=== PATIENT | female | born 1990 | race Caucasian/White ===

== ENCOUNTER → 2018-09-06 08:21 | Outpatient (CLI) | payer OTHER, SELFPAY ==
--- NOTE | 2018-09-06 08:23 | DI.RAD.S_ITS ---
PROCEDURE: XR PELVIS 1-2V INDICATIONS: pelvic pain TECHNIQUE: Single view(s) of the pelvis acquired. COMPARISON: None. FINDINGS: Bones: No fractures or dislocations. No suspicious bony lesions. Joint spaces appear grossly preserved. Sacroiliac joints unremarkable. Soft tissues: Visualized bowel gas pattern is normal. No suspicious soft tissue calcifications. IMPRESSION: Negative exam. Dictated by: Bashir Kirkland M.D. on 09/06/2018 at 11:36 Approved by: Bashir Kirkland M.D. on 09/06/2018 at 11:41
--- NOTE | 2018-09-06 08:23 | DI.RAD.S_ITS ---
PROCEDURE: XR LUMBAR SPINE MIN 4V INDICATIONS: pelvic pain TECHNIQUE: 5 views of the lumbar spine were acquired. COMPARISON: None. FINDINGS: Bones: No fracture or focal osseous destruction seen. There is mild diffuse lumbar facet arthropathy. No definite lumbar disc space narrowing seen. Sacroiliac joints appear unremarkable Soft tissues: Overlying bowel gas pattern is normal. No suspicious soft tissue calcifications. Oblique images: No pars defects. IMPRESSION: Mild diffuse lumbar facet arthropathy, otherwise unremarkable examination as above. Dictated by: Bashir Kirkland M.D. on 09/06/2018 at 10:10 Approved by: Bashir Kirkland M.D. on 09/06/2018 at 10:13
[2018-09-06 09:15] LABS: Hematocrit 40.4 % (36-46); Hemoglobin 13.7 g/dL (12.0-16.0); Mean Corpuscular HGB Conc 33.8 % (30-36); Mean Corpuscular Hemoglobin 31.1 PG (26-34); Mean Corpuscular Volume 91.8 fL (80-100); Platelet Count 266 X10^3/uL (150-400); Red Cell Distribution Width 12.5 % (11.6-14.8); White Blood Cell Count 5.2 X10^3/uL (4.5-11.0)
[2018-09-06 09:39] LABS: Neutrophils Absolute Manual 2652 /uL (3000-5900); RBC Morphology Normal Morphology; Total Cells Counted 100
[2018-09-06 09:55] LABS: Alanine Aminotransferase 21 IU/L (9-52); Albumin 4.4 g/dL (3.5-5.0); Albumin Globulin Ratio 1.8 (1.0-2.8); Alkaline Phosphatase 37 U/L (38-126); Aspartate Aminotransferase 19 IU/L (14-36); BUN Creatinine Ratio 14.3 (6-22); Bilirubin Total 0.6 mg/dL (0.2-1.3); Blood Urea Nitrogen 10 mg/dL (7-17); Calcium 9.1 mg/dL (8.4-10.2); Carbon Dioxide 25 mmol/L (22-32); Chloride 104 mmol/L (98-107); Estimated Glomerular Filt Rate > 60.0 mL/min (>60); Globulin 2.5 g/dL (1.7-4.1); Glucose 81 mg/dL (70-100); HEMOLYSIS < 15 (0-50); Potassium 3.8 mmol/L (3.4-5.1); Sodium 143 mmol/L (137-145); Total Protein 6.9 g/dL (6.3-8.2)
[2018-09-06 10:03] LABS: Vitamin D 25 Hydroxy (D3) 29.9 ng/mL (30.0-100.0)
[2018-09-06 10:06] LABS: C-Reactive Protein Quant < 0.5 mg/dL (<1.0)
[2018-09-06 10:18] LABS: Thyroid Stimulating Hormone 0.87 uIU/mL (0.47-4.68)
[2018-09-06 10:34] LABS: Vitamin B12 244 pg/mL (239-931)
== END ==
PROVIDERS: Family Provider Obstetrics & Gynecology; PCP Obstetrics & Gynecology; Visit Provider Family Medicine
DX: R10.2 Pelvic and perineal pain (principal); M47.816 Spondylosis without myelopathy or radiculopathy, lumbar region; R53.82 Chronic fatigue, unspecified
CPT/HCPCS: 36415; 72110; 72170; 80053; 82306; 82607; 84443; 85025; 86140

== ENCOUNTER 2018-11-06 09:33 | Emergency (ER) | payer OTHER, SELFPAY ==
[2018-11-06 09:40] VITALS: BP 119/79; PULSE 96; RESP 20; TEMP 37.1; O2SAT 98; BMI 22.3
--- NOTE | 2018-11-06 09:46 | DI.RAD.S_ITS ---
PROCEDURE: XR CHEST 2V INDICATIONS: cough, chest congestion TECHNIQUE: 2 views of the chest were acquired. COMPARISON: Located Within [facility], , CHEST 1 VIEW, 04/16/2016, 22:16. FINDINGS: Surgical changes and devices: None. Lungs and pleura: No pleural effusions or pneumothorax. Lungs are clear. Mediastinum: Mediastinal contours are normal. Heart size is normal. Bones and chest wall: No suspicious bony abnormalities. Soft tissues appear unremarkable. IMPRESSION: 1. No acute cardiopulmonary disease. Dictated by: Anderson Egan M.D. on 11/06/2018 at 10:19 Approved by: Anderson Egan M.D. on 11/06/2018 at 10:19
[2018-11-06 10:51] VITALS: BP 122/74; PULSE 77; RESP 18; O2SAT 99
--- NOTE | 2018-11-07 14:17 | ED_ITS ---
HPI - URI/Sore Throat General Chief Complaint: Upper Respiratory Symptoms Stated Complaint: states possible pink eye and chest congestion Time Seen by Provider: 11/06/18 10:21 Source: patient Mode of arrival: ambulatory Limitations: no limitations History of Present Illness HPI Narrative: Patient presents the emergency department with chief complaint of eye redness and irritation times 24 hr. Patient states that she has recently had an upper respiratory infection, as has her small child, but that seems to be getting better. She states that mainly, she is concerned because her eyes, especially her right eye, have become increasingly red and itchy and now she is having mucousy discharge out of both of them. She states her eyes are starting to burn and hurt. She does not wear contacts or other corrective lenses. She has had no foreign bodies in her eye. She is otherwise feeling okay, though she still has somewhat of a cough and has a tight feeling in her chest. No other complaints at this time. No chest pain. No fever. No nausea, vomiting, diarrhea, or abdominal pain. Related Data Previous Rx's Medication Instructions Recorded norethindrone acetate 1 mg-ethinyl 1 tab PO DAILY #63 tab 10/13/18 estradiol 20 mcg tablet gentamicin 2 drop EYE-BOTH TID #5 ml 11/06/18 Allergies Allergy/AdvReac Type Severity Reaction Status Date / Time No Known Drug Allergies Allergy Verified 09/23/18 13:51 Review of Systems Review of Systems All systems reviewed & are unremarkable except as noted in HPI and below Constitutional Denies chills, Denies fever(s), Denies lethargy and Denies weakness Eyes Denies change in vision, Reports eye discharge, Reports irritation, Denies loss of vision and Reports eye pain ENT Ears, Nose, Mouth, and Throat: Denies change in voice, Denies neck pain and Denies sore throat Cardiovascular Denies chest pain, Denies irregular heart rhythm, Denies lightheadedness, Denies palpitations, Denies dyspnea, Denies dyspnea on exertion and Denies orthopnea Respiratory Reports cough, Denies dyspnea, Denies dyspnea on exertion and Denies wheezing Gastrointestinal Gastrointestinal: Denies abdominal pain, Denies change in bowel habits, Denies diarrhea, Denies nausea and Denies vomiting Genitourinary Denies hematuria, Denies flank pain, Denies urinary incontinence and Denies urinary urgency Musculoskeletal Denies neck pain Integumentary/Breasts Denies pruritus, Denies erythema, Denies rash and Denies wounds Neurologic Denies confusion, Denies loss of vision and Denies weakness Psychiatric Denies anxiety, Denies confusion, Denies depression, Denies homicidal ideation and Denies suicidal ideation Endocrine Denies palpitations Hematologic/Lymphatic Denies easy bruising Allergic/Immunologic Denies wheezing [facility] Medical History HPV (human papilloma virus) infection (Chronic) Abnormal Pap smear of cervix (Resolved) Surgical History Anesthesia (Resolved) History of tonsillectomy (Resolved 05/2005) Status post loop electrosurgical excision procedure (LEEP) of cervix (Resolved 08/2014) Family History Grandfather Cancer Pancreatic cancer Grandfather Age: 86 Pacemaker Brother No problems noted. Father No problems noted. Grandmother No problems noted. Mother No problems noted. Grandmother No problems noted. Sister No problems noted. Social History marital status: Smoking Status: Never smoker alcohol intake: current (ON OCCASION ) substance use type: does not use Exam Initial Vital Signs Initial Vital Signs: Vital Signs Temperature 98.7 F 11/06/18 09:40 Pulse Rate 96 H 11/06/18 09:40 Respiratory Rate 20 11/06/18 09:40 Blood Pressure 119/79 11/06/18 09:40 Pulse Oximetry 98 11/06/18 09:40 Const General: cooperative and well developed Nutritional Appearance: well nourished Orientation: alert, awake, oriented x3 and not confused [facility] Head: normocephalic and atraumatic Ears: external ears normal Nose: external nose normal and No nasal discharge Face and sinus: face symmetric and No dry mucous membranes Mouth: oral mucosae normal and moist mucous membranes Teeth and gingiva: dentition normal Eyes General: appearance normal, both eyes and all related structures Eyelids: eyelids normal Conjunctivae: conjunctival abnormality (Injection bilaterally, right greater than left.) Sclera: sclerae normal Pupils: PERRL EOM: EOM intact bilaterally Neck Neck: normal visual inspection, trachea midline, No lymphadenopathy, No midline deformity and No JVD Lymphatic: No lymphedema Chest Chest: normal inspection of the chest Resp Effort & Inspection: normal respiratory effort, able to speak in complete sentences, no respiratory distress and no use of accessory muscles Auscultation: clear to auscultation bilaterally, no rales, no rhonchi and no wheezes Cardio Rate: regular rate Rhythm: regular rhythm Heart Sounds: no click, no gallops, no murmurs and no rubs Pulses: normal peripheral pulses GI Inspection: non-distended Palpation: soft, no hepatosplenomegaly, No guarding, No pulsatile mass and No tender Back/Spine/Pelvis Back: No CVA tenderness Cervical Spine: cervical ROM normal and No pain with cervical ROM Thoracic/Lumbar Spine: thoracic and lumbar spine normal to inspection Skin General: no rashes or lesions noted, No jaundice and No petechiae Neuro General: alert, oriented x3, gait normal and no focal motor deficits Speech: speech normal Extrem General: full ROM, no clubbing, cyanosis or edema, no pedal edema and no calf tenderness Psych Appearance: well kempt Mental Status: mental status grossly normal Attitude: cooperative Thought Content: normal and suicidality Judgment: judgment good Course Course Narrative: I discussed with the patient that she most likely has a viral conjunctivitis, but we would treat her with antibiotic drops as a precaution. Due to large volume in the emergency department, nursing staff did follow protocol and order a chest x-ray on the patient, due to her complaint of cough and chest heaviness. This is found to be negative. I did feel this patient was stable for discharge home. She was given a prescription for eyedrops, and I did answer her questions about how to apply the drops. Patient is deemed stable for discharge home. We have discussed the usual indications for return. Orders Ordered: ED Orders 11/06/18 09:46 CXR [XR chest 2V] Stat Vital Signs - 8 hr 11/06/18 09:40 Temperature 98.7 F Pulse Rate 96 H Respiratory Rate 20 Blood Pressure 119/79 Pulse Oximetry 98 MDM - URI/Sore Throat Medical Records Attestation: I reviewed the patient's medical records. Discharge Plan Departure Patient Disposition: Home Clinical Impression: Conjunctivitis, Upper respiratory infection Discharge Date/Time: 11/06/18 10:52 Interventions: ED Discharge Assessment Last Done: 11/06/18 10:52 Instructions: DI for Conjunctivitis Prescriptions: New gentamicin 0.3 % drops 2 drop EYE-BOTH TID Qty: 5 RF: 0 No Action norethindrone ac-eth estradiol [Loestrin 11/20 ()] 1-20 mg-mcg tablet 1 tab PO DAILY Qty: 63 RF: 3 Referrals: Du Maier MD [Primary Care Provider] -
== END 2018-11-06 10:52 | disposition home or self-care (01) ==
PROVIDERS: Emergency Provider Emergency Medicine; Family Provider Obstetrics & Gynecology; PCP Family Medicine
DX: H10.029 Other mucopurulent conjunctivitis, unspecified eye (principal); J06.9 Acute upper respiratory infection, unspecified
CPT/HCPCS: 71046; 99282; 99283

== ENCOUNTER 2020-04-20 08:48 | Emergency (ER) | payer OTHER, SELFPAY ==
[2020-04-20 09:13] VITALS: BP 141/87; PULSE 93; RESP 18; TEMP 36.9; O2SAT 100; BMI 20.3
--- NOTE | 2020-04-20 09:29 | ED_ITS ---
HPI - Abdominal Pain General Chief Complaint: Abdominal Pain Stated Complaint: Abdominal pain couple days, rectal bleeding Time Seen by Provider: 04/20/20 09:16 Source: patient Mode of arrival: Family Vehicle Limitations: no limitations History of Present Illness HPI narrative: CC : Diffuse abdominal pain/cramps with questionable rectal bleeding HPI: Patient is a 29-year-old female who states that she has had abdominal pain with diffuse cramps for the last 2-3 days prior to admission. She has had this what appears to be rectal bleeding with very dark of violaceous red stool. She has had no blood in the toilet. She states that a few days ago she did eat some beets and was wondering whether not this can cause her stool to appear red and dark. She states that she has been having diffuse abdominal cramps which seems to be mostly located in her lower abdomen and feels as though she is about ready to start her period but does not start a. . She takes control hormone pills [id number] and has not had a menstrual period in several months. Her last delivery was a daughter in 2017. At that time she had a history of anal fissures. She denies that she is having any rectal pain at this time. She states that periodically she feels as though she is having constipation but is not having diarrhea. She has never been told that she had irritable bowel syndrome. She denies a history of peptic ulcer disease, Crohn's disease, ulcerative colitis, or diverticulosis. She denies a history pancreatitis diabetes mellitus hypertension, congestive heart disease, congenital heart disease and heart murmur, or asthma. 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 She does not smoke cigarettes does not vape drink alcohol use any drugs. Related Data Previous Rx's Medication Instructions Recorded clobetasol 0.05 % topical cream 1 applictn TOP BID #30 gram 03/13/19 norethindrone acetate 1 mg-ethinyl See Rx Instructions .ROUTE 08/31/19 estradiol 20 mcg tablet .COMPLEX #63 tablet amoxicillin 875 mg-potassium 1 tab PO BID #20 tab 12/06/19 clavulanate 125 mg tablet benzonatate 100 mg capsule 100 mg PO BID PRN #20 cap 12/06/19 dicyclomine 20 mg PO QID #20 tab 04/20/20 ondansetron HCl [Zofran] 4 mg PO Q6H PRN #12 tab 04/20/20 Allergies Allergy/AdvReac Type Severity Reaction Status Date / Time No Known Drug Allergies Allergy Verified 04/20/20 09:19 Review of Systems Review of Systems Narrative: REVIEW OF SYSTEMS: CONSTITUTIONAL: No fever or chills. The patient wakes up in the middle the night with drenching sweat such that she needs to take a shower. She thinks that this sweats are due to stress. NEUROLOGICAL: She denies any significant headache numbness tingling paresthesias anesthesia is or paresis. EENT: She has had no change in vision loss of vision sore throat or trouble swallowing. CARDIO-PULMONARY: She denies any chest pain cough shortness of difficulty in breathing. GASTROINTESTINAL: She has diffuse abdominal cramps. She has had no significant nausea vomiting hematemesis coffee-ground emesis melena or hematochezia. At time she has felt as though she is actually constipated. GENITAL URINARY: She denies any urinary symptoms. She has had no hematuria. She denies any vaginal bleeding for several months. MUSCULOSKELETAL/ RHEUMATOLOGICAL: Is had no back pain more than usual Patient History Medical History Abnormal Pap smear of cervix (Resolved) Anxiety (12/17/15) control counseling (Acute) Bronchitis (Inactive) Chronic fatigue (12/17/15) Elective induction of labor planned (Inactive) Group beta Strep positive (Inactive) HPV (human papilloma virus) infection (Chronic) Hypokalemia (Inactive) Learning disorder (12/17/15) Left serous otitis media (Inactive) Palpitations (12/17/15) Sinusitis (Acute) Status post vacuum-assisted vaginal delivery (Inactive) Surgical History Anesthesia (Resolved) History of tonsillectomy (Resolved 05/2005) Status post loop electrosurgical excision procedure (LEEP) of cervix (Resolved 08/2014) Family History Grandfather Cancer Pancreatic cancer Grandfather Age: 88 Pacemaker Brother No problems noted. Father No problems noted. Grandmother No problems noted. Mother No problems noted. Grandmother No problems noted. Sister No problems noted. Social History marital status: Smoking Status: Never smoker alcohol intake: current substance use type: does not use Smoking Status: Never smoker alcohol intake frequency: 0-2 drinks per day Substance Use Type: does not use Exam Narrative Exam Narrative: PHYSICAL EXAM: CONSTITUTIONAL: Awake, Alert, Oriented, Coherent, Cooperative in NAD. Does not appear toxic or ill. HEAD: AT/NC EENT: PERRL, FROM of eyes, no discharge, conjunctiva pale NOSE:No epistaxis or nasal drainage MOUTH:Oral mucosa is moist and pale, posterior pharynx is without erythema or exudate. NECK: Supple, no obvious JVD, Trachea is midline without stridor, no palpable LN. SPINE: Palpationof the cervical, Thoracic, Lumbar or Sacral spine reveals no gross deformity or tenderness. No CVA tenderness. THORAX: No deformity, retractions, chest wall tenderness. LUNGS: Clear, symmetrical breath sounds without respiratory distress. HEART: Normal heart tones, regular rhythm and rate without murmur. ABDOMEN: Diffuse tenderness in all 4 quadrants but seems to be most tender suprapubically. No significant guarding rebound or rigidity. LYMPHATIC: no palpable lymph nodes or spleen. EXTREMITIES: No edema, deformity, tenderness or cyanosis. SKIN: No rash, bruising, petechiae or purpura. NEURO: Awake, alert, oriented, conversive, cranial nerves II-XII are symmetrical , moves all 4 extremities and is ambulatory. . Initial Vital Signs Initial Vital Signs: Vital Signs Temperature 98.5 F 04/20/20 09:13 Pulse Rate 93 H 04/20/20 09:13 Respiratory Rate 18 04/20/20 09:13 Blood Pressure 141/87 H 04/20/20 09:13 Pulse Oximetry 100 04/20/20 09:13 Course Course Course Narrative: 1134: The patient's stool is dark and appears of red in violaceous. I was expecting that the patient's stool was going to reveal an upper GI bleed. However it did not test positive for Hemoccult. Surprisingly this can be secondary to the patient eating beets. She will be discharged home and given 3 hemoccult cards and each morning with her bowel movement told to put a small amount of stool in them and taken to her primary care physician to be tested for occult blood. Her x-rays were negative. Orders Ordered: Discontinued Medications Sodium Chloride (Normal Saline 0.9%) 1,000 mls @ 1,000 mls/hr IV BOLUS ONE Stop: 04/20/20 10:16 Last Infusion: 04/20/20 11:17 Dose: 0 mls/hr Documented by: Admin: 04/20/20 10:04 Dose: 1,000 mls/hr Documented by: OLU Vital Signs Vital signs: Vital Signs - 8 hr 04/20/20 09:13 04/20/20 11:10 Temperature 98.5 F 97.2 F L Pulse Rate 93 H 89 Respiratory Rate 18 16 Blood Pressure 141/87 H Blood Pressure [rt arm] 112/65 Pulse Oximetry 100 100 MDM - Abdominal Pain Lab Data Result diagrams: 04/20/20 09:45 04/20/20 09:45 Labs: Lab Results 04/20/20 04/20/20 04/20/20 Range/Units 09:45 09:45 09:45 WBC 2.9 L (4.5-11.0) X10^3/uL RBC 4.34 (4.0-5.2) X10^6/uL Hgb 13.9 (12.0-16.0) g/dL Hct 39.8 (36-46) % MCV 91.5 (80-100) fL MCH 32.1 (26-34) PG MCHC 35.1 (30-36) % RDW 12.1 (11.6-14.8) % Plt Count 251 (150-400) X10^3/uL Neut % (Auto) 42.4 L (50-75) % Lymph % (Auto) 47.9 H (25-40) % [place] % (Auto) 8.4 (3-14) % Eos % (Auto) 0.6 L (2-4) % Baso % (Auto) 0.7 (0-2) % Neut # (Auto) 1200 L (9142-8369) /uL Lymph # (Auto) 1400 (1647-5184) /uL [place] # (Auto) 200 (0-900) /uL Eos # (Auto) 0 (0-450) /uL Baso # (Auto) 0 (0-100) /uL ESR 6 (0-20) MM/HR PT 11.9 (10.1-12.7) SECONDS INR 1.0 (0.9-1.3) APTT 27 (26.4-36.2) SECONDS Sodium 139 (137-145) mmol/L Potassium 3.6 (3.4-5.1) mmol/L Chloride 106 (98-107) mmol/L Carbon Dioxide 25 (22-32) mmol/L BUN 14 (7-17) mg/dL Creatinine 0.68 (0.52-1.04) mg/dL Estimated GFR > 60.0 (>60) mL/min BUN/Creatinine Ratio 20.6 (6-22) Glucose 90 (70-100) mg/dL Lactate (0.7-2.1) mmol/L Calcium 9.6 (8.4-10.2) mg/dL Total Bilirubin 0.9 (0.2-1.3) mg/dL AST 24 (14-36) IU/L ALT 14 (<35) IU/L Alkaline Phosphatase 36 L (38-126) U/L Lactate Dehydrogenase 354 (313-618) U/L C-Reactive Protein < 0.5 (<1.0) mg/dL Total Protein 7.4 (6.3-8.2) g/dL Albumin 4.5 (3.5-5.0) g/dL Globulin 2.9 (1.7-4.1) g/dL Albumin/Globulin Ratio 1.6 (1.0-2.8) Lipase 89 (23-300) U/L Blood Type Antibody Screen 04/20/20 04/20/20 Range/Units 09:45 09:45 WBC (4.5-11.0) X10^3/uL RBC (4.0-5.2) X10^6/uL Hgb (12.0-16.0) g/dL Hct (36-46) % MCV (80-100) fL MCH (26-34) PG MCHC (30-36) % RDW (11.6-14.8) % Plt Count (150-400) X10^3/uL Neut % (Auto) (50-75) % Lymph % (Auto) (25-40) % [place] % (Auto) (3-14) % Eos % (Auto) (2-4) % Baso % (Auto) (0-2) % Neut # (Auto) (2066-5849) /uL Lymph # (Auto) (1541-1442) /uL [place] # (Auto) (0-900) /uL Eos # (Auto) (0-450) /uL Baso # (Auto) (0-100) /uL ESR (0-20) MM/HR PT (10.1-12.7) SECONDS INR (0.9-1.3) APTT (26.4-36.2) SECONDS Sodium (137-145) mmol/L Potassium (3.4-5.1) mmol/L Chloride (98-107) mmol/L Carbon Dioxide (22-32) mmol/L BUN (7-17) mg/dL Creatinine (0.52-1.04) mg/dL Estimated GFR (>60) mL/min BUN/Creatinine Ratio (6-22) Glucose (70-100) mg/dL Lactate 0.9 (0.7-2.1) mmol/L Calcium (8.4-10.2) mg/dL Total Bilirubin (0.2-1.3) mg/dL AST (14-36) IU/L ALT (<35) IU/L Alkaline Phosphatase (38-126) U/L Lactate Dehydrogenase (313-618) U/L C-Reactive Protein (<1.0) mg/dL Total Protein (6.3-8.2) g/dL Albumin (3.5-5.0) g/dL Globulin (1.7-4.1) g/dL Albumin/Globulin Ratio (1.0-2.8) Lipase (23-300) U/L Blood Type O Positive Antibody Screen Negative Point of care testing: Point of Care Testing Test Results Negative Urine Dip Bedside Urine Glucose Negative Bedside Urine Bilirubin - Negative Bedside Urine Ketone - Negative Urine Specific [place] 1.015 Bedside Urine Occult Blood - Negative Bedside Urine pH 6.0 Bedside Urine Protein - Negative Bedside Urine Urobilinogen - Negative Bedside Urine Nitrite - Negative Bedside Urine Leukocytes - Negative Esterase Discharge Plan Departure Patient Disposition: Home Clinical Impression: Abdominal cramping Abdominal pain Qualifiers: Abdominal location: lower abdomen, unspecified Qualified Code(s): R10.30 - Lower abdominal pain, unspecified Discharge Date/Time: 04/20/20 11:48 Instructions: DI for Abdominal Pain-Adult Activity Restrictions/Additional Instructions: 1. Your stool is dark in violaceous. It actually looks like stool that could be seen with an upper gastrointestinal bleed. However your stool tested negative for blood. Your stool could appear this color with your consumption and ingestion of beats. How, mom a we [address] a small amount of stool for the next 3 days on a Hemoccult card close it let it dry and placed it in an envelope and take it to your primary care physician to be tested for occult blo od. 2. Maintain your normal activity and drink plenty of fluids. 3. Take Zofran 4 mg orally 3 to 4 times a day as needed for nausea and vomiting. 4. For abdominal cramps take the Bentyl/ dicyclomine 20 mg as needed 3 times per day. If the abdominal pain becomes worse, intolerable, or you become dizzy lightheaded feel faint or you have grossly bloody stools you need to return to the emergency department at that time, or proceed to the nearest emergency department. Prescriptions: New dicyclomine 20 mg tablet 20 mg PO QID Qty: 20 RF: 0 ondansetron HCl [Zofran] 4 mg tablet 4 mg PO Q6H PRN (Reason: nausea and vomiting) Qty: 12 RF: 0 No Action clobetasol 0.05 % cream 1 applictn TOP BID Qty: 30 RF: 0 amoxicillin-pot clavulanate [Augmentin] 875-125 mg tablet 1 tab PO BID Qty: 20 RF: 0 benzonatate [Tessalon Perles] 100 mg capsule 100 mg PO BID PRN (Reason: cough) Qty: 20 RF: 0 norethindrone ac-eth estradiol [Luan 11/20 (21)] 1-20 mg-mcg tablet See Rx Instructions .ROUTE .COMPLEX Qty: 63 RF: 3 Referrals: Du Maier MD [Primary Care Provider] -
--- NOTE | 2020-04-20 09:30 | DI.RAD.S_ITS ---
PROCEDURE: XR ACUTE ABDOMEN SERIES INDICATIONS: diffuse abdominal cramps with questionable rectal bleeding TECHNIQUE: One view chest and two views of the abdomen were acquired. COMPARISON: [facility], CR, XR CHEST 2V, 11/06/2018, 9:49. FINDINGS: Surgical changes and devices: None. Chest: Lungs are clear. Heart size is normal. No pleural effusions. No pneumoperitoneum. Abdomen: Bowel gas pattern is normal. No air-filled distended small bowel loops are identified. No suspicious calcifications. Visualized solid organ contours appear normal. Bones: No suspicious bony lesions. IMPRESSION: 1. No bowel obstruction. 2. No acute cardiopulmonary process is evident. Dictated by: Joby Masters M.D. on 04/20/2020 at 9:35 Approved by: Joby Masters M.D. on 04/20/2020 at 9:35
[2020-04-20 10:02] LABS: Add Manual Diff / Slide Review NO; Basophils Absolute Auto 0 /uL (0-100); Basophils Percent Auto 0.7 % (0-2); Eosinophils Absolute Auto 0 /uL (0-450); Eosinophils Percent Auto 0.6 % (2-4); Hematocrit 39.8 % (36-46); Hemoglobin 13.9 g/dL (12.0-16.0); Lymphocytes Absolute Auto 1400 /uL (1100-4500); Lymphocytes Percent Auto 47.9 % (25-40); Mean Corpuscular HGB Conc 35.1 % (30-36); Mean Corpuscular Hemoglobin 32.1 PG (26-34); Mean Corpuscular Volume 91.5 fL (80-100); Monocytes Absolute Auto 200 /uL (0-900); Monocytes Percent Auto 8.4 % (3-14); Neutrophils Absolute Auto 1200 /uL (1500-7000); Neutrophils Percent Auto 42.4 % (50-75); Platelet Count 251 X10^3/uL (150-400); Red Blood Cell Count 4.34 X10^6/uL (4.0-5.2); Red Cell Distribution Width 12.1 % (11.6-14.8); White Blood Cell Count 2.9 X10^3/uL (4.5-11.0)
[2020-04-20] MEDS: SODIUM CHLORIDE 0.9% 1,000 ML 1000 ML IV (10:04)
[2020-04-20 10:06] LABS: Prothrombin Time 11.9 SECONDS (10.1-12.7)
[2020-04-20 10:08] LABS: PTT Partial Thromboplastin Tim 27 SECONDS (26.4-36.2)
[2020-04-20 10:11] LABS: Lactate (Lactic Acid) 0.9 mmol/L (0.7-2.1)
[2020-04-20 10:12] LABS: Alanine Aminotransferase 14 IU/L (<35); Albumin 4.5 g/dL (3.5-5.0); Albumin Globulin Ratio 1.6 (1.0-2.8); Alkaline Phosphatase 36 U/L (38-126); Aspartate Aminotransferase 24 IU/L (14-36); BUN Creatinine Ratio 20.6 (6-22); Bilirubin Total 0.9 mg/dL (0.2-1.3); Blood Urea Nitrogen 14 mg/dL (7-17); C-Reactive Protein Quant < 0.5 mg/dL (<1.0); Calcium 9.6 mg/dL (8.4-10.2); Carbon Dioxide 25 mmol/L (22-32); Chloride 106 mmol/L (98-107); Estimated Glomerular Filt Rate > 60.0 mL/min (>60); Globulin 2.9 g/dL (1.7-4.1); Glucose 90 mg/dL (70-100); HEMOLYSIS < 15 (0-50); Lactate Dehydrogenase 354 U/L (313-618); Lipase 89 U/L (23-300); Potassium 3.6 mmol/L (3.4-5.1); Sodium 139 mmol/L (137-145); Total Protein 7.4 g/dL (6.3-8.2)
[2020-04-20 10:21] LABS: Erythrocyte Sedimentation Rate 6 MM/HR (0-20)
[2020-04-20 11:10] VITALS: BP 112/65; PULSE 89; RESP 16; TEMP 36.2; O2SAT 100
[2020-04-20 11:48] VITALS: BP 118/78; PULSE 68; RESP 14; TEMP 36.8; O2SAT 100
== END 2020-04-20 11:48 | disposition home or self-care (01) ==
PROVIDERS: Emergency Provider Emergency Medicine; Family Provider Obstetrics & Gynecology; PCP Family Medicine
DX: R10.30 Lower abdominal pain, unspecified (principal); K62.5 Hemorrhage of anus and rectum
CPT/HCPCS: 36415; 74022; 80053; 81003; 81025; 83605; 83615; 83690; 85025; 85610; 85651; 85730; 86140; 86850; 86900; 86901; 96360; 99284

== ENCOUNTER → 2020-08-13 10:41 | Outpatient (CLI) | payer OTHER, SELFPAY ==
[2020-08-13 12:18] LABS: HCG Quantitative /Beta subunit 56.1 mIU/mL
== END ==
PROVIDERS: Family Provider Obstetrics & Gynecology; PCP Family Medicine; Referring Provider Family Medicine; Visit Provider Family Medicine
DX: O20.0 Threatened abortion (principal)
CPT/HCPCS: 36415; 84702

== ENCOUNTER → 2020-08-15 08:38 | Outpatient (CLI) | payer OTHER, SELFPAY ==
[2020-08-15 11:31] LABS: HCG Quantitative /Beta subunit 132.9 mIU/mL
== END ==
PROVIDERS: Family Provider Obstetrics & Gynecology; PCP Family Medicine; Referring Provider Family Medicine; Visit Provider Family Medicine
DX: O20.0 Threatened abortion (principal)
CPT/HCPCS: 36415; 84702

== ENCOUNTER → 2020-08-20 08:40 | Outpatient (CLI) | payer OTHER, SELFPAY ==
[2020-08-20 10:47] LABS: HCG Quantitative /Beta subunit 286.4 mIU/mL
== END ==
PROVIDERS: Family Provider Obstetrics & Gynecology; PCP Family Medicine; Referring Provider Obstetrics & Gynecology; Visit Provider Obstetrics & Gynecology
DX: O20.9 Hemorrhage in early pregnancy, unspecified (principal)
CPT/HCPCS: 36415; 84702

== ENCOUNTER → 2020-08-22 08:38 | Outpatient (CLI) | payer OTHER, SELFPAY ==
[2020-08-22 10:22] LABS: HCG Quantitative /Beta subunit 268.4 mIU/mL
== END ==
PROVIDERS: Family Provider Obstetrics & Gynecology; PCP Family Medicine; Referring Provider Family Medicine; Visit Provider Obstetrics & Gynecology
DX: O20.9 Hemorrhage in early pregnancy, unspecified (principal)
CPT/HCPCS: 36415; 84702

== ENCOUNTER → 2020-08-26 14:34 | Outpatient (CLI) | payer OTHER, SELFPAY ==
[2020-08-26 15:45] LABS: Add Manual Diff / Slide Review NO; Basophils Absolute Auto 0 /uL (0-100); Basophils Percent Auto 0.5 % (0-2); Eosinophils Absolute Auto 0 /uL (0-450); Eosinophils Percent Auto 0.9 % (2-4); Hematocrit 37.8 % (36-46); Hemoglobin 12.9 g/dL (12.0-16.0); Lymphocytes Absolute Auto 2100 /uL (1100-4500); Lymphocytes Percent Auto 41.5 % (25-40); Mean Corpuscular HGB Conc 34.2 % (30-36); Mean Corpuscular Hemoglobin 31.4 PG (26-34); Mean Corpuscular Volume 91.9 fL (80-100); Monocytes Absolute Auto 500 /uL (0-900); Monocytes Percent Auto 9.3 % (3-14); Neutrophils Absolute Auto 2400 /uL (1500-7000); Neutrophils Percent Auto 47.8 % (50-75); Platelet Count 243 X10^3/uL (150-400); Red Blood Cell Count 4.11 X10^6/uL (4.0-5.2); Red Cell Distribution Width 11.6 % (11.6-14.8)
[2020-08-26 16:15] LABS: HCG Quantitative /Beta subunit 310.8 mIU/mL
== END ==
PROVIDERS: Family Provider Obstetrics & Gynecology; PCP Family Medicine; Referring Provider Obstetrics & Gynecology; Visit Provider Obstetrics & Gynecology
DX: O03.9 Complete or unspecified spontaneous abortion without complication (principal)
CPT/HCPCS: 36415; 84702; 85025

== ENCOUNTER → 2020-09-02 08:44 | Outpatient (CLI) | payer OTHER, SELFPAY ==
[2020-09-02 10:48] LABS: HCG Quantitative /Beta subunit 199.4 mIU/mL
== END ==
PROVIDERS: Family Provider Obstetrics & Gynecology; PCP Family Medicine; Referring Provider Obstetrics & Gynecology; Visit Provider Obstetrics & Gynecology
DX: O20.9 Hemorrhage in early pregnancy, unspecified (principal)
CPT/HCPCS: 36415; 84702

== ENCOUNTER → 2020-09-21 09:02 | Outpatient (CLI) | payer OTHER, SELFPAY | PROVIDERS: Family Provider Obstetrics & Gynecology; PCP Family Medicine; Referring Provider Specialist; Visit Provider Specialist | DX: O20.9 Hemorrhage in early pregnancy, unspecified (principal) | CPT/HCPCS: 36415; 84702 ==

== ENCOUNTER → 2020-09-23 08:37 | Outpatient (CLI) | payer OTHER, SELFPAY ==
[2020-09-23 10:05] LABS: HCG Quantitative /Beta subunit 143.8 mIU/mL
== END ==
PROVIDERS: Family Provider Obstetrics & Gynecology; PCP Family Medicine; Referring Provider Obstetrics & Gynecology; Visit Provider Obstetrics & Gynecology
DX: O20.9 Hemorrhage in early pregnancy, unspecified (principal)
CPT/HCPCS: 36415; 84702

== ENCOUNTER → 2020-09-25 13:07 | Outpatient (CLI) | payer OTHER, SELFPAY ==
[2020-09-25 14:05] LABS: COVID19 -Nasal RAPID Negative (Negative)
== END ==
PROVIDERS: Family Provider Obstetrics & Gynecology; PCP Family Medicine; Visit Provider Obstetrics & Gynecology
DX: Z03.818 Encounter for observation for suspected exposure to other biological agents ruled out (principal)
CPT/HCPCS: 87635

== ENCOUNTER 2020-09-27 08:43 | Day surgery (SDC) | payer OTHER, SELFPAY ==
[2020-09-27] VITALS (13 sets, daily range): BP systolic 102–123; BP diastolic 53–72; PULSE 83–112; RESP 11–24; TEMP 36.9–37; O2SAT 96–100; BMI 20.2
[2020-09-27] MEDS: LACTATED RINGERS 1,000 ML 42 ML IV ×2 (09:01→11:42)
[2020-09-27] MEDS: ACETAMINOPHEN IV 1,000 MG/100 ML VIAL 400 MG IV (10:10)
--- NOTE | 2020-09-27 10:14 | PM.HP.1 ---
History of Present Illness History of Present Illness Date Patient Seen: 09/27/20 Time Patient Seen: 10:14 Chief complaint: PELVIC Narrative: Patient is a 30-year-old 2 para 1 who presents for a laparoscopic removal of a right ovarian cyst and a suction D&C due to a persistent right ovarian cyst and incomplete miscarriage. Patient History Medical History (Updated 09/23/20 @ 13:43 by Olivia Carvalho MD) Abnormal Pap smear of cervix Anxiety (12/17/15) Bronchitis Chronic fatigue (12/17/15) Elective induction of labor planned Group beta Strep positive HPV (human papilloma virus) infection Hypokalemia Learning disorder (12/17/15) Left serous otitis media Palpitations (12/17/15) Sinusitis Status post vacuum-assisted vaginal delivery Surgical History Anesthesia History of tonsillectomy (05/2005) Status post loop electrosurgical excision procedure (LEEP) of cervix (08/2014) Family & Social History Family History Grandfather Cancer Pancreatic cancer Grandfather Age: 88 Pacemaker Brother No problems noted. Father No problems noted. Grandmother No problems noted. Mother No problems noted. Grandmother No problems noted. Sister No problems noted. Social History: household members spouse Tobacco & Substance use: Smoking Status Never smoker alcohol intake current alcohol intake frequency 0-2 drinks per day Substance Use Type does not use Meds Home Medications and Allergies Home Medications Medication Instructions Recorded Confirmed Type prenat.vits,velasquez,cwn-uvxn-vvjsb 1 tab PO DAILY 08/28/20 09/27/20 History Allergies Allergy/AdvReac Type Severity Reaction Status Date / Time No Known Drug Allergies Allergy Verified 09/27/20 08:53 Exam Vital Signs (past 8 hours): - 09/27/20 08:54 Temperature 98.5 F Pulse Rate 83 Respiratory Rate 16 Blood Pressure 123/72 Pulse Oximetry 100 Oxygen Delivery Method Room Air Narrative Exam Narrative: HEENT: No thyromegaly, no anterior cervical or supraclavicular lymphadenopathy. Lungs:Clear to auscultation bilaterally, no wheezes. Cardiovascular: Regular rate and rhythm, no murmurs, rubs, or gallops. Abdomen: No scars. No hepatosplenomegaly. No masses palpable. External genitalia: Normal Vagina: Normal Cervix: Normal Bimanual exam: 8 Week size anteverted uterus. Mobile. Rectal: No masses. Assessment & Plan Assessment & Plan narrative: Assessment: 30-year-old 2 para 1 with an incomplete miscarriage and a persistent right ovarian cyst Plan: Laparoscopic removal of right ovarian cyst and suction D&C The risks, benefits, and alternatives to the procedure were explained to the patient. The risks including bleeding, infection, injury to the bowel, bladder, or the risk of uterine perforation. She understands these risks and agrees to proceed. A full par Q was held and consent form was signed. COVID-19 COVID-19 status: Negative Result date/Date tested (Pos, Neg/Pending): 09/25/20 Time Spent With Patient Time with patient: 15-24 minutes
--- NOTE | 2020-09-27 10:17 | PM.PREOP ---
Pre-operative Note COVID-19 COVID-19 status: Negative Result date/Date tested (Pos, Neg/Pending): 09/25/20 Interval Note History & Physical reviewed/Exam performed by Physician: Yes Changes to H&P: No H&P completed within 30 days and has changed as indicated here:: 09/27/20
--- NOTE | 2020-09-27 10:35 | SUR.OPER ---
Lithotomy on padded OR bed, head on pillow, arms tucked at side, Legs secured in padded yellow fins stirrups.
--- NOTE | 2020-09-27 10:42 | PATH_ITS ---
Note [facility] Accession Number: [id number] TESTS RESULT FLAG UNITS REF RANGE LAB Clinician Provided Cytology Information No. of containers..01 Other (Miscellaneous) RIGHT OVARIAN CYST FLUID DIAGNOSIS: RIGHT OVARIAN CYST FLUID, ASPIRATION. NEGATIVE FOR MALIGNANT CELLS. RARE STRIP OF BENIGN CYST LINING CELLS PRESENT. THIS INTERPRETATION INCLUDES EVALUATION OF A CELL BLOCK. Pathologist ICD10: 01 N83.201 Rey Weston MD, Pathologist NPI- [id number] Hang Morales, Retail Sales Associate Bilingual ([facility]) 25 CC, YELLOW, CLEAR RECEIVED: FRESH IN ORANGE CAP CONTAINER. /VDU 09/30/2020 0535 Local FLAG LEGEND: L-Low Normal,H-High Normal,LL-Alert Low,HH-Alert High <-Panic Low,>-Panic High,A-Abnormal,AA-Critical Abnormal Performed at: 01 =[facility] [address], [place] [address] Anderson Linton MD, Specimen Comment: A courtesy copy of this report has been sent to [phone] Specimen Comment: A duplicate report has been generated due to demographic updates. Performed at: 01 [facility] [address], [place], [place] [id number] MD Anderson Linton MD Phone: [phone]
[2020-09-27] MEDS: BUPIVACAINE 0.5% W/ EPI (PF) 30 ML VIAL INJ (11:07)
--- NOTE | 2020-09-27 11:29 | PATH_ITS ---
[facility] Accession Number: [id number] . 01 Material submitted: . PART A: product of conception - PRODUCT OF CONCEPTION PART B: ovary - RIGHT OVARIAN CYST, RIGHT FALLOPIAN TUBE WITH ECTOPIC, LEFT PERITUBAL CYST . 01 Clinical history: . PELVIC . 02 Diagnosis: A. Products of Conception: Portions of endometrial tissue with epithelial changes consistent with Alfred - Keesha reaction. No definite products of conception identified. Some endometrial fragments demonstrate prominent vessels, suggestive of polyp, if clinical and imaging studies are concordant. . B. Right Ovarian Cyst, Right Fallopian Tube with Ectopic, Left Paratubal Cyst, Right Salpingo-oophorectomy: Portions of ovarian tissue with follicular cysts and a prominent corpus luteum cyst; negative for epithelial atypia or malignancy. Fallopian tube involved by an ectopic gestation (presumed right Fallopian tube by requisition information). Fallopian tube with multiple benign paratubal cysts present (3 mm - 15 mm in greatest dimension). Detached cyst (1.5 cm in greatest dimension); presumed left paratubal origin by requisition information. All specimens negative for epithelial atypia or malignancy. [facility] 09/30/2020 1133 Local . 02 Electronically signed: . Adriana Alcocer MD, Pathologist NPI- [id number] . 01 Gross description: . A. The specimen is received in formalin, labeled products of conception, and consists of multiple pappas-pink fragments of soft tissue admixed with mucus and clotted blood measuring 2.5 x 2.5 x 0.5 cm in aggregate. The specimen is filtered. No chorionic villi or parts are identified. The specimen is entirely submitted in cassette A1. B. The specimen is received in formalin, labeled right ovarian cyst, left paratubal cyst, right fallopian tube with ectopic, and consists of a 4.0 x 2.5 x 2.0 cm, previously disrupted ovarian cyst with a pappas, smooth to cerebriform external surface. Sectioning reveals a pappas-pink, smooth inner lining with no papillary excrescences. The cysts range from 0.1 cm to 2.0 cm. Also received is a 5.5 cm in length by up to 1.5 cm in diameter fallopian tube with a pink-purple, smooth serosa and multiple paratubal cysts ranging from 0.3 cm to 1.5 cm. Sectioning reveals a lumen dilated up to 1.4 cm in diameter, which contains clotted blood and pappas-pink soft tissue (possibly consistent with chorionic villi). There is an additional 1.5 x 1.5 x 0.8 cm translucent cyst within the container. Industrial Seamstress sections are submitted. . B1-B2: Industrial Seamstress ovary. B3-B5: Fallopian tube, margin (en face, black), central cross sections, and bisected fimbria to include additionally received cyst. B6: Fallopian tube contents. ([id number]) /R 09/28/2020 Local . 02 Pathologist provided ICD-10: N83.209, O03.4, O00.119, N83.8 . 02 CPT . 085429, [id number] Performed at: 01 [facility] [address] [place] [address], [place], [place] [id number] MD Anderson Linton MD Phone: [phone] Performed at: 02 [facility] [place] [address] [place] [id number] MD Estela Angel MD Phone: [phone]
--- NOTE | 2020-09-27 11:34 | PM.GYNOP.1 ---
Operative Date/Time/Diagnoses Date of procedure: 09/27/20 Time of procedure: 11:34 Pre-op diagnosis: Right ovarian cyst Incomplete miscarriage Post-op diagnosis: other (Right ectopic , left paratubal cyst, right paratubal cyst, right ovarian cyst) Procedure & Clinicians Procedure: Procedures Operation Date: 09/27/20 09:45 Actual Procedures Side Surgeon p Laparoscopic excision of right ovarian cyst, excision left peritubal cyst, suction D&C Bilateral Olivia Carvalho MD s suction D&C Olivia Carvalho MD Indications: Incomplete miscarriage Right ovarian cyst Surgeon: Olivia Carvalho Anesthesia Type: General Operative Notes Findings: 8 wk anteverted uterus Right ectopic 3.5cm x 1.5 cm Right ovarian cyst 5 x 5 cm Right paratubal cyst Left paratubal cyst Normal left tube Normal liver and gallbladder Normal appendix Free blood in the pelvis Moderate amount of tissue in the uterus Closure Type: primary Specimen(s): right tube (with ectopic), uterine contents and other (right paratubal cyst, left paratubal cyst, right ovarian cyst fluid) Applied: catheter (In and out) Estimated blood loss (mL): 10 Blood products transfused: none Procedure in detail: After informed consent was obtained, the patient was taken to the operating room where she was placed in the dorsal supine position. After adequate general endotracheal anesthesia was achieved, she was placed in the dorsal lithotomy position, and prepped and draped in the usual sterile fashion. A time-out was performed. A bivalve speculum was placed into the vagina and the anterior lip of the cervix was grasped with a single-tooth tenaculum. Cervical os was sequentially dilated until the Zumi uterine manipulator could pass easily into the endometrial cavity. The single-tooth tenaculum was removed from the anterior lip of the cervix. The bivalve speculum was removed from the vagina. Attention was then turned to the abdomen where 6 cc of 0.5% Marcaine with epinephrine were injected in the umbilical fold. A 5 mm incision was made. The Veress needle was placed into the peritoneal cavity, and its placement confirmed by aspiration and drop test. The Veress needle was removed and a 5 mm trocar was placed without difficulty. The patient was placed into Trendelenburg. Initial inspection of the pelvis revealed free blood in the pelvis. A 2nd incision was made 4 cm lateral to the midline at the level of the umbilicus after 6 cc of 0.5% Marcaine with epinephrine were injected. A 2nd 5 mm trocar was placed Under direct visualization. A probe was used to identify the right tube and ovary. There was a large cyst on the right ovary. There was an ectopic in midportion of the tube on the right measuring 3.5 x 1.5 cm. There was blood coming from the fimbriated end of the tube. There was a paratubal cyst on the right tube as well. On the left side there was a paratubal cyst but otherwise tube and ovary were normal. The liver, gallbladder, and appendix were visualized and were normal. Another incision was made 4 cm lateral to the midline on the right side. A 3rd 5 mm trocar was placed under direct visualization. The right tube was grasped with an atraumatic grasper. Using the PlasmaKinetic was settings of 40 w the mesosalpinx on the right was cauterized and cut all the way down to the cornua of the uterus. The tube was amputated from the uterus at the cornua with the PlasmaKinetic. Hemostasis was achieved. The right paratubal cyst was a part of that specimen. A needle point was placed into the right ovarian cyst, approximately 25 cc of clear yellow fluid was drained. The cyst was grasped with an atraumatic grasper. Using the PlasmaKinetic the cyst was opened. The cyst wall was peeled out from the ovary and then the PlasmaKinetic was used for hemostasis. The left paratubal cyst was grasped with an atraumatic grasper, using PlasmaKinetic the connection between the tube was cauterized and cut. Hemostasis was achieved. The pelvis was copiously irrigated with 1 L of warm saline. All of the fluid and previous blood were aspirated. There was no bleeding noted. 6 cc of 0.5% Marcaine with epinephrine were injected just above the pubic symphysis and a 1 cm incision was made. A 10 mm trocar was placed under direct visualization. Small endobag was placed through the suprapubic trocar. All of the specimens were placed into the bag. The trocar was removed and the bag was pulled up through the fascia. The fascia was reapproximated with 0 Vicryl in a running fashion. The subcutaneous tissue on the suprapubic incision was copiously irrigated with warm normal saline. Three simple interrupted sutures were used to reapproximate the subcutaneous tissue. the instruments were removed from the abdomen. The trocars were removed. All of the incisions were closed with 4 0 Biosyn in a subcuticular fashion. Steri-Strips, and Allevyn dressings were placed over the 4 incisions. attention was then turned to the vagina where the Zumi uterine manipulator was removed from the uterus. The bivalve speculum was placed into the vagina. A single-tooth tenaculum was placed on the anterior lip of the cervix. A # 7 Curved plastic curette passed easily into the endometrial cavity. Several passes with suction revealed blood and some small amount of tissue. The curette was removed from the uterus. the single-tooth tenaculum was removed from the anterior lip of the cervix. The bivalve speculum was removed from the vagina. Sponge, lap, and instrument counts were correct x2. The patient tolerated the procedure well, and was taken to PACU in stable condition. Complications: none Post-operative Condition: stable Disposition: PACU Plan for aftercare: Home after recovery
[2020-09-27] MEDS: fentaNYL 100 MCG/2 ML INJ IV ×2 (11:38→11:42)
[2020-09-27] MEDS: ONDANSETRON 4 MG/2 ML INJ IV (11:41)
== END 2020-09-27 13:05 | disposition home or self-care (01) ==
PROVIDERS: Family Provider Obstetrics & Gynecology; PCP Family Medicine; Referring Provider Obstetrics & Gynecology; Visit Provider Obstetrics & Gynecology
PROC: 0UB24ZZ Excision of Bilateral Ovaries, Percutaneous Endoscopic Approach (ICD-10-PCS; CPT 58662; principal; 2020-09-27 09:45)
PROC: (CPT 58120; 2020-09-27 09:45)
DX: O03.4 Incomplete spontaneous abortion without complication (principal); Z3A.08 8 weeks gestation of pregnancy; O00.101 Right tubal pregnancy without intrauterine pregnancy; N83.8 Other noninflammatory disorders of ovary, fallopian tube and broad ligament; N83.11 Corpus luteum cyst of right ovary
CPT/HCPCS: 58662; 59812; 36415; 51701; 51798; 74177; 80048; 81001; 85025; 86850; 86900; 86901; 99282; J0131; J1100; J1170; J1885; J2250; J2405; J2704; J3010; Q9967

== ENCOUNTER 2020-09-27 18:29 | Emergency (ER) | payer OTHER, SELFPAY ==
[2020-09-27] VITALS (13 sets, daily range): BP systolic 109–127; BP diastolic 62–81; PULSE 62–103; RESP 14; TEMP 37; O2SAT 92–100; BMI 20.2
--- NOTE | 2020-09-27 18:42 | ED_ITS ---
HPI - Female Genitourinary General Chief complaint: Urogenital-Female Stated complaint: S/P Surger Time Seen by Provider: 09/27/20 18:30 Source: patient and family Mode of arrival: Ambulatory Limitations: no limitations History of Present Illness HPI Narrative: 30-year-old female nonsmoker with no significant chronic medical problems presents with her significant other and a chief complaint of severe lower abdominal pain that started with an attempt to urinate and the passage of blood clots earlier today. She has had a rather interesting, if not complex recent medical history with a trip to the operating room after an ultrasound and patient story suggested an ectopic . Patient had a right ectopic and incomplete miscarriage and was in the operating room today. She had laparoscopic excision of right ovarian cyst, excision of left. Tubal cyst, suction D&C. Complaint: pelvic pain Onset (ago): hour(s) Location: suprapubic Severity: severe Quality: Aching and Sharp Duration: intermittent Relieving factors: none Exacerbating factors: urination Urinary symptoms: Difficulty Urinating and Hematuria Associated symptoms: abdominal pain and nausea/vomiting Related Data Home Medications Medication Instructions Recorded Confirmed prenat.vits,velasquez,[id number] 1 tab PO DAILY 08/28/20 09/27/20 Previous Rx's Medication Instructions Recorded hydrocodone-acetaminophen [[place]] 1 tab PO Q4-6H PRN #20 tab 09/27/20 nitrofurantoin monohyd/m-cryst 100 mg PO BID #7 cap 09/27/20 [Macrobid] Allergies Allergy/AdvReac Type Severity Reaction Status Date / Time No Known Drug Allergies Allergy Verified 09/27/20 18:44 Review of Systems Constitutional Constitutional: Denies chills, Denies fatigue, Denies fever(s), Denies frequent falls, Denies lethargy and Denies weakness Eyes Eyes: Denies change in vision, Denies eye discharge, Denies irritation and Denies loss of vision ENT Ears, Nose, Mouth, and Throat: Denies change in voice, Denies dizziness, Denies neck pain, Denies sore throat and Denies throat swelling Cardiovascular Cardiovascular: Denies chest pain, Denies irregular heart rhythm, Denies lightheadedness, Denies palpitations, Denies dyspnea, Denies dyspnea on exertion and Denies orthopnea Respiratory Respiratory: Denies cough, Denies dyspnea, Denies dyspnea on exertion and Denies wheezing Gastrointestinal Gastrointestinal: Reports abdominal pain, Denies change in bowel habits, Denies diarrhea, Reports nausea and Denies vomiting Genitourinary Genitourinary: Reports dysuria Genitourinary: Reports dysuria Musculoskeletal Musculoskeletal: Denies neck pain and Denies numbness Integumentary/Breasts Skin/Breast: Denies pruritus, Denies erythema, Denies rash and Denies wounds Neurologic Neurologic: Denies behavioral changes, Denies confusion, Denies dizziness, Denies frequent falls, Denies loss of vision, Denies numbness and Denies weakne ss Psychiatric Psychiatric: Denies anxiety, Denies behavioral changes, Denies confusion, Denies depression, Denies homicidal ideation and Denies suicidal ideation Endocrine Endocrine: Denies fatigue, Denies flushing and Denies palpitations Hematologic/Lymphatic Hematologic/Lymphatic: Denies easy bruising Allergic/Immunologic Allergic/Immunologic: Denies urticaria, Denies throat swelling and Denies wheezing Patient History Medical History Abnormal Pap smear of cervix Anxiety (12/17/15) Bronchitis Chronic fatigue (12/17/15) Elective induction of labor planned 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 Father No problems noted. Grandmother No problems noted. Mother No problems noted. Grandmother No problems noted. Sister No problems noted. alcohol intake frequency: 0-2 drinks per day Substance Use Type: does not use Exam Narrative Exam Narrative: GENERAL: [30] year old patient appears stated age. Well- nourished, well-developed patient, in mild distress. HEAD: Atraumatic. Normocephalic. EYES: Pupils equal round and reactive. Extraocular motions intact. No scleral icterus. No injection or drainage. ENT: Nose without bleeding, purulent drainage. Throat without erythema, tonsillar hypertrophy or exudate. Airway patent. NECK: Trachea midline. Non tender CARDIOVASCULAR: Regular rate and rhythm without murmurs, gallops, or rubs. RESPIRATORY: Clear to auscultation. Breath sounds equal bilaterally. No wheezes, rales, or rhonchi. GASTROINTESTINAL: Abdomen soft, generalized tenderness, decreased bowel sounds, nondistended. Laparoscopic incisions are intact EXTREMITIES: No edema or joint tenderness. BACK: Nontender without deformity or crepitance. No flank tenderness. NEURO: AOx3. SKIN: No rash or erythema of visible areas Initial Vital Signs Initial Vital Signs: Vital Signs Pulse Rate 103 H 09/27/20 18:36 Blood Pressure 125/76 09/27/20 18:36 Pulse Oximetry 100 09/27/20 18:36 Course Orders Ordered: ED Orders 09/27/20 19:45 CT abdomen pelvis w con Stat 09/27/20 20:06 Type and Screen Stat 09/27/20 21:54 Urinalysis and Microscopic Stat Discontinued Medications Hydromorphone HCl (Hydromorphone 0.5 Mg Inj) 0.5 mg IV NOW ONE Stop: 09/27/20 19:46 Last Admin: 09/27/20 20:07 Dose: 0.5 mg Documented by: KBROTEM Hydromorphone HCl (Hydromorphone 0.5 Mg Inj) 0.5 mg IV NOW ONE Stop: 09/27/20 21:57 Last Admin: 09/27/20 22:00 Dose: 0.5 mg Documented by: CSIEDLE Sodium Chloride (Normal Saline 0.9%) 1,000 mls @ 125 mls/hr IV CONT DESEAN Last Infusion: 09/27/20 23:50 Dose: 0 mls/hr Documented by: Admin: 09/27/20 20:07 Dose: 125 mls/hr Documented by: KBROTEM Nitrofurantoin Macrocrystals (Nitrofurantoin 100mg Prepack) 1 bottle MISC SEEINSTR ONE Stop: 09/27/20 22:36 Last Admin: 09/27/20 23:33 Dose: 1 bottle Documented by: RMARTIN Ondansetron HCl (Ondansetron 4 Mg/2 Ml Inj) 4 mg IV Q4HR PRN PRN Reason: Nausea And Vomiting Last Admin: 09/27/20 20:08 Dose: 4 mg Documented by: RONNA Phenazopyridine HCl (Phenazopyridine 100 Mg Prepack) 1 bottle MISC SEEINSTR ONE Stop: 09/27/20 22:36 Last Admin: 09/27/20 23:33 Dose: 1 bottle Documented by: KIMMY Consultations Consultation #1: discussed with Dr. Carvalho. After extensive discussion of history/physical, labs and imaging she recommends placement of rasmussen. Rx for Pyridium, Macrobid and follow up Wednesday Morning Vital Signs Vital signs: Vital Signs - 8 hr 09/27/20 20:33 09/27/20 20:34 09/27/20 21:00 Pulse Rate 96 H 85 68 Blood Pressure 118/69 113/65 Pulse Oximetry 92 98 98 09/27/20 21:30 09/27/20 21:55 09/27/20 22:00 Pulse Rate 81 88 66 Blood Pressure 115/64 127/81 Pulse Oximetry 99 97 98 09/27/20 22:30 09/27/20 23:00 Pulse Rate 62 78 Blood Pressure 109/62 109/65 Pulse Oximetry 96 97 MDM - Female Genitourinary Lab Data Result diagrams: 09/27/20 18:15 09/27/20 18:15 Labs: Lab Results 09/27/20 09/27/20 09/27/20 Range/Units 18:15 18:15 20:06 WBC 12.9 H (4.5-11.0) X10^3/uL RBC 4.25 (4.0-5.2) X10^6/uL Hgb 13.0 (12.0-16.0) g/dL Hct 39.4 (36-46) % MCV 92.7 (80-100) fL MCH 30.7 (26-34) PG MCHC 33.1 (30-36) % RDW 12.7 (11.6-14.8) % Plt Count 279 (150-400) X10^3/uL Neut % (Auto) 92.8 H (50-75) % Lymph % (Auto) 6.0 L (25-40) % [place] % (Auto) 1.2 L (3-14) % Eos % (Auto) 0.0 L (2-4) % Baso % (Auto) 0.0 (0-2) % Neut # (Auto) 68704 H (0617-9872) /uL Lymph # (Auto) 800 L (6699-0756) /uL [place]mer # (Auto) 200 (0-900) /uL Eos # (Auto) 0 (0-450) /uL Baso # (Auto) 0 (0-100) /uL Sodium 136 L (137-145) mmol/L Potassium 3.9 (3.4-5.1) mmol/L Chloride 103 (98-107) mmol/L Carbon Dioxide 25 (22-32) mmol/L BUN 11 (7-17) mg/dL Creatinine 0.69 (0.52-1.04) mg/dL Estimated GFR > 60.0 (>60) mL/min BUN/Creatinine Ratio 15.9 (6-22) Glucose 162 H (70-100) mg/dL Calcium 8.9 (8.4-10.2) mg/dL Urine Color Urine Appearance Urine pH (4.5-8.0) Ur Specific [place] (1.000-1.035) Urine Protein (Negative) Urine Glucose (UA) (Negative) g/dL Urine Ketones (NEGATIVE) Urine Occult Blood (Negative) Urine Nitrate (Negative) Urine Bilirubin (NEGATIVE) Urine Urobilinogen (0.2) E.U./dL Ur Leukocyte Esterase (NEGATIVE) Urine RBC (0-5/HPF) Urine WBC (0-5/HPF) Ur Squamous Epith Cells (0-5/HPF) Urine Bacteria (None) Ur Culture Indicated? Blood Type O Positive Antibody Screen Negative 09/27/20 Range/Units 21:54 WBC (4.5-11.0) X10^3/uL RBC (4.0-5.2) X10^6/uL Hgb (12.0-16.0) g/dL Hct (36-46) % MCV (80-100) fL MCH (26-34) PG MCHC (30-36) % RDW (11.6-14.8) % Plt Count (150-400) X10^3/uL Neut % (Auto) (50-75) % Lymph % (Auto) (25-40) % [place] % (Auto) (3-14) % Eos % (Auto) (2-4) % Baso % (Auto) (0-2) % Neut # (Auto) (7103-1664) /uL Lymph # (Auto) (7234-1052) /uL [place]mer # (Auto) (0-900) /uL Eos # (Auto) (0-450) /uL Baso # (Auto) (0-100) /uL Sodium (137-145) mmol/L Potassium (3.4-5.1) mmol/L Chloride (98-107) mmol/L Carbon Dioxide (22-32) mmol/L BUN (7-17) mg/dL Creatinine (0.52-1.04) mg/dL Estimated GFR (>60) mL/min BUN/Creatinine Ratio (6-22) Glucose (70-100) mg/dL Calcium (8.4-10.2) mg/dL Urine Color Yellow Urine Appearance Sl cloudy Urine pH 7.5 (4.5-8.0) Ur Specific [place] 1.010 (1.000-1.035) Urine Protein Negative (Negative) Urine Glucose (UA) Negative (Negative) g/dL Urine Ketones Negative (NEGATIVE) Urine Occult Blood 3+ H (Negative) Urine Nitrate Negative (Negative) Urine Bilirubin Negative (NEGATIVE) Urine Urobilinogen 0.2 (0.2) E.U./dL Ur Leukocyte Esterase Negative (NEGATIVE) Urine RBC 10-30/hpf H (0-5/HPF) Urine WBC None seen (0-5/HPF) Ur Squamous Epith Cells 0-1 /hpf (0-5/HPF) Urine Bacteria None seen (None) Ur Culture Indicated? Cult not indicated Blood Type Antibody Screen Imaging Data CT scan - abdomen/pelvis: Radiologist's Impression: Chart Viewer Diagnostics DATE TYPE STATUS REF RANGE/AUTHOR Hx 09/27/20 19:45 Jose J Patterson 04/20/20 09:30 Joby Masters 11/06/18 09:46 Anderson Egan 09/06/18 08:23 Bashir Kirkland 09/06/18 08:23 Bashir Kirkland Katelyn M 30, F1 DEP ER, [facility] 160.02cm 51.71kg BMI: 20.2kg/m? Urogenital-Female Search Chart No Data to Display Total Pending Discharge ONSET 09/27/20 23:00 Rajani Francis M 30 F [address] [id number] Scan ReportSigned Patient: Rajani Francis MMR#: [id number]: [id number]:[id number]/Sex: 30 / FDate of Service: 09/27/20Loc: EDAccession Number: [id number] Procedure: CT abdomen pelvis w con Ordering Provider: Ervin Jeong D.O. PROCEDURE: CT ABDOMEN PELVIS W CON INDICATIONS: severe post op pain TECHNIQUE: After the administration of intravenous contrast, 5 mm thick sections acquired from the diaphragm to the symphysis. 5 mm coronal and sagittal reformats were acquired. For radiation dose reduction, the following was used: automated exposure control, adjustment of mA and/or kV according to patient size. COMPARISON: None. FINDINGS: Image quality: Excellent. ABDOMEN: Lung bases: Lung bases are clear. No pleural effusion. Heart size is normal. Solid organs: Liver is normal in size and enhancement. Well-circumscribed hypodensity in the left lobe of the liver most likely a benign cyst or hemangioma. Gallbladder is unremarkable. Biliary system is non dilated. Pancreas enhances normally. Spleen is normal in size and enhancement. No adrenal nodules. Kidneys demonstrate normal size and enhancement, without hydronephrosis. Peritoneum and bowel: Bowel loops demonstrate normal wall thickness and caliber. The appendix is normal. Trace fluid adjacent to the liver. A trace pneumoperitoneum. Nodes and vessels: No retroperitoneal or mesenteric adenopathy by size criteria. Aorta and inferior vena cava are normal in size. Miscellaneous: No ventral hernias. No ventral abdominal wall fluid collection. Trace subcutaneous gas. PELVIS: Genitourinary: Distended urinary bladder. No gas in the urinary bladder. A small amount of gas in the lower abdomen due to recent surgery. Trace free fluid in the pelvic cul-de-sac. Miscellaneous: No inguinal hernias or adenopathy. Bones: No suspicious bony lesions. No vertebral body compression fractures. IMPRESSION: 1. Small amount of intra-abdominal and pelvic fluid. Small amount of free air. Findings suspected to be within normal limits post recent surgery. 2. Small amount of subcutaneous gas at the in the ventral abdomen near the incision. No fluid collection. 3. Distended urinary bladder. Dictated by: Jose J Patterson M.D. on 09/27/2020 at 20:55 Approved by: Jose J Patterson M.D. on 09/27/2020 at 21:03 Discharge Plan Departure Patient Disposition: Home Clinical Impression: Pelvic pain, Acute urinary retention Instructions: How to Care for Your Rasmussen Catheter -- Female, DI for Urinary Retention in Women Activity Restrictions/Additional Instructions: *You have been diagnosed with [pelvic pain and possible urinary retention] *What to do: *Take medications as directed: prescription to [facility] *Follow up with Dr. Carvalho on Wednesday. She will call you to arrange a time *Return to ER if you should have any new, worsening or concerning symptoms, Prescriptions: New nitrofurantoin monohyd/m-cryst [[place]] 100 mg capsule 100 mg PO BID Qty: 7 RF: 0 No Action prenat.vits,velasquez,[id number] Tablet 1 tab PO DAILY RF: 0 hydrocodone-acetaminophen [[place]] 5-325 mg tablet 1 tab PO Q4-6H PRN (Reason: pain) Qty: 20 RF: 0 Referrals: Olivia Carvalho MD [Family Provider] - Du Maier MD [Primary Care Provider] -
--- NOTE | 2020-09-27 19:45 | DI.CT.S_ITS ---
PROCEDURE: CT ABDOMEN PELVIS W CON INDICATIONS: severe post op pain TECHNIQUE: After the administration of intravenous contrast, 5 mm thick sections acquired from the diaphragm to the symphysis. 5 mm coronal and sagittal reformats were acquired. For radiation dose reduction, the following was used: automated exposure control, adjustment of mA and/or kV according to patient size. COMPARISON: None. FINDINGS: Image quality: Excellent. ABDOMEN: Lung bases: Lung bases are clear. No pleural effusion. Heart size is normal. Solid organs: Liver is normal in size and enhancement. Well-circumscribed hypodensity in the left lobe of the liver most likely a benign cyst or hemangioma. Gallbladder is unremarkable. Biliary system is non dilated. Pancreas enhances normally. Spleen is normal in size and enhancement. No adrenal nodules. Kidneys demonstrate normal size and enhancement, without hydronephrosis. Peritoneum and bowel: Bowel loops demonstrate normal wall thickness and caliber. The appendix is normal. Trace fluid adjacent to the liver. A trace pneumoperitoneum. Nodes and vessels: No retroperitoneal or mesenteric adenopathy by size criteria. Aorta and inferior vena cava are normal in size. Miscellaneous: No ventral hernias. No ventral abdominal wall fluid collection. Trace subcutaneous gas. PELVIS: Genitourinary: Distended urinary bladder. No gas in the urinary bladder. A small amount of gas in the lower abdomen due to recent surgery. Trace free fluid in the pelvic cul-de-sac. Miscellaneous: No inguinal hernias or adenopathy. Bones: No suspicious bony lesions. No vertebral body compression fractures. IMPRESSION: 1. Small amount of intra-abdominal and pelvic fluid. Small amount of free air. Findings suspected to be within normal limits post recent surgery. 2. Small amount of subcutaneous gas at the in the ventral abdomen near the incision. No fluid collection. 3. Distended urinary bladder. Dictated by: Jose J Patterson M.D. on 09/27/2020 at 20:55 Approved by: Jose J Patterson M.D. on 09/27/2020 at 21:03
[2020-09-27 19:52] LABS: Add Manual Diff / Slide Review NO; Basophils Absolute Auto 0 /uL (0-100); Eosinophils Absolute Auto 0 /uL (0-450); Hematocrit 39.4 % (36-46); Lymphocytes Absolute Auto 800 /uL (1100-4500); Mean Corpuscular HGB Conc 33.1 % (30-36); Mean Corpuscular Hemoglobin 30.7 PG (26-34); Mean Corpuscular Volume 92.7 fL (80-100); Monocytes Absolute Auto 200 /uL (0-900); Monocytes Percent Auto 1.2 % (3-14); Neutrophils Absolute Auto 12000 /uL (1500-7000); Neutrophils Percent Auto 92.8 % (50-75); Platelet Count 279 X10^3/uL (150-400); Red Blood Cell Count 4.25 X10^6/uL (4.0-5.2); Red Cell Distribution Width 12.7 % (11.6-14.8); White Blood Cell Count 12.9 X10^3/uL (4.5-11.0)
[2020-09-27 19:58] LABS: BUN Creatinine Ratio 15.9 (6-22); Blood Urea Nitrogen 11 mg/dL (7-17); Calcium 8.9 mg/dL (8.4-10.2); Carbon Dioxide 25 mmol/L (22-32); Chloride 103 mmol/L (98-107); Estimated Glomerular Filt Rate > 60.0 mL/min (>60); Glucose 162 mg/dL (70-100); HEMOLYSIS < 15 (0-50); Potassium 3.9 mmol/L (3.4-5.1); Sodium 136 mmol/L (137-145)
[2020-09-27] MEDS: HYDROMORPHONE 0.5 MG INJ IV ×2 (20:07→22:00)
[2020-09-27] MEDS: SODIUM CHLORIDE 0.9% 1,000 ML 125 ML IV (20:07)
[2020-09-27] MEDS: ONDANSETRON 4 MG/2 ML INJ IV (20:08)
[2020-09-27 22:06] LABS: Bacteria Urine None Seen; WBC Urine None Seen (0-5/HPF)
[2020-09-27 22:13] LABS: Appearance Urine UA SL CLOUDY; Bilirubin Urine UA NEGATIVE (NEGATIVE); Color Urine UA YELLOW; Glucose Urine UA NEGATIVE (Negative); Ketones Urine UA NEGATIVE (NEGATIVE); Leukocyte Esterase Urine UA NEGATIVE (NEGATIVE); Nitrite Urine UA NEGATIVE (Negative); Occult Blood Urine UA 3+ (Negative); Protein Urine UA NEGATIVE (Negative); Urobilinogen Urine UA 0.2 E.U./dL (0.2); pH Urine UA 7.5 (4.5-8.0)
[2020-09-27 22:18] LABS: Culture Indicated Urine Cult Not Indicated; RBC Urine 10-30/HPF (0-5/HPF); Squamous Epithelial Cell Urine 0-1 /HPF (0-5/HPF)
[2020-09-27] MEDS: LIDOCAINE 2% (UROJET) 5 ML GEL (23:30)
[2020-09-27] MEDS: PHENAZOPYRIDINE 100 MG PREPACK 1 BOTTLE MISC (23:33)
[2020-09-27] MEDS: NITROFURANTOIN 100MG PREPACK 1 BOTTLE MISC (23:33)
== END 2020-09-27 23:53 | disposition home or self-care (01) ==
PROVIDERS: Emergency Provider Emergency Medicine; Family Provider Obstetrics & Gynecology; PCP Family Medicine
DX: R10.2 Pelvic and perineal pain (principal); R33.8 Other retention of urine
CPT/HCPCS: 36415; 51701; 51798; 74177; 80048; 81001; 85025; 86850; 86900; 86901; 99282; J1170; J2405; Q9967

== ENCOUNTER → 2020-11-06 10:12 | Outpatient (CLI) | payer OTHER, SELFPAY ==
[2020-11-06 10:34] LABS: Initial Volume 3.5 mL; Semen 30 min. Liquification? Yes
== END ==
PROVIDERS: Family Provider Obstetrics & Gynecology; PCP Family Medicine; Referring Provider Family Medicine; Visit Provider Family Medicine
DX: N97.9 Female infertility, unspecified (principal)
CPT/HCPCS: 58323

== ENCOUNTER → 2020-11-18 09:57 | Outpatient (CLI) | payer OTHER, SELFPAY ==
[2020-11-18 10:50] LABS: HCG Quantitative /Beta subunit 172.5 mIU/mL
== END ==
PROVIDERS: Family Provider Obstetrics & Gynecology; PCP Family Medicine; Referring Provider Obstetrics & Gynecology; Visit Provider Obstetrics & Gynecology
DX: N91.2 Amenorrhea, unspecified (principal)
CPT/HCPCS: 36415; 84702

== ENCOUNTER → 2020-11-20 08:39 | Outpatient (CLI) | payer OTHER, SELFPAY ==
[2020-11-20 10:16] LABS: HCG Quantitative /Beta subunit 473.4 mIU/mL
== END ==
PROVIDERS: Family Provider Obstetrics & Gynecology; PCP Family Medicine; Referring Provider Obstetrics & Gynecology; Visit Provider Obstetrics & Gynecology
DX: N91.2 Amenorrhea, unspecified (principal)
CPT/HCPCS: 36415; 84702

== ENCOUNTER → 2021-01-20 13:43 | Outpatient (CLI) | payer OTHER, SELFPAY ==
[2021-01-20 14:58] LABS: Add Manual Diff / Slide Review NO; Basophils Absolute Auto 0 /uL (0-100); Basophils Percent Auto 0.2 % (0-2); Eosinophils Absolute Auto 0 /uL (0-450); Eosinophils Percent Auto 0.2 % (2-4); Hematocrit 40.2 % (36-46); Hemoglobin 13.3 g/dL (12.0-16.0); Lymphocytes Absolute Auto 1800 /uL (1100-4500); Lymphocytes Percent Auto 18.7 % (25-40); Mean Corpuscular HGB Conc 33.2 % (30-36); Mean Corpuscular Hemoglobin 30.6 PG (26-34); Mean Corpuscular Volume 92.3 fL (80-100); Monocytes Absolute Auto 500 /uL (0-900); Monocytes Percent Auto 4.9 % (3-14); Neutrophils Absolute Auto 7500 /uL (1500-7000); Platelet Count 269 X10^3/uL (150-400); Red Blood Cell Count 4.35 X10^6/uL (4.0-5.2); Red Cell Distribution Width 12.8 % (11.6-14.8); White Blood Cell Count 9.8 X10^3/uL (4.5-11.0)
[2021-01-20 15:08] LABS: Appearance Urine UA CLEAR; Bilirubin Urine UA NEGATIVE (NEGATIVE); Color Urine UA YELLOW; Glucose Urine UA NEGATIVE (Negative); Ketones Urine UA NEGATIVE (NEGATIVE); Leukocyte Esterase Urine UA NEGATIVE (NEGATIVE); Nitrite Urine UA NEGATIVE (Negative); Occult Blood Urine UA NEGATIVE (Negative); Protein Urine UA NEGATIVE (Negative); Specific Gravity Urine UA 1.025 (1.000-1.035); Urobilinogen Urine UA 0.2 E.U./dL (0.2)
[2021-01-20 17:36] LABS: Hepatitis B Surface Antigen NEGATIVE s/c (NEGATIVE); Rubella Antibody IgG 24.5 IU/mL (>15)
[2021-01-20 17:58] LABS: HIV 1 & 2 Ab/Ag 4th Gen Combo NEGATIVE (NEGATIVE); Hep C Virus Ab w/Reflex Quant NEGATIVE s/c (NEGATIVE)
[2021-01-21 08:09] LABS: RPR Screen Non Reactive (Non Reactive)
[2021-01-21 09:25] LABS: Varicella IgG Antibody 3252 index (Immune >165)
== END ==
PROVIDERS: Family Provider Obstetrics & Gynecology; PCP Family Medicine; Referring Provider Obstetrics & Gynecology; Visit Provider Obstetrics & Gynecology
DX: Z34.81 Encounter for supervision of other normal pregnancy, first trimester (principal)
CPT/HCPCS: 36415; 80055; 81003; 86787; 86803; 86850; 86900; 86901; 87077; 87086; 87147; 87389

== ENCOUNTER → 2021-01-24 08:50 | Outpatient (CLI) | payer OTHER, SELFPAY ==
[2021-01-24] MEDS: COVID-19 VACC #1, MRNA(MOD) 100 MCG/0.5 ML VIAL IM (08:57)
== END ==
PROVIDERS: Family Provider Obstetrics & Gynecology; PCP Family Medicine; Visit Provider Internal Medicine
DX: Z23 Encounter for immunization (principal)
CPT/HCPCS: 0011A; 91301

== ENCOUNTER → 2021-02-19 15:12 | Outpatient (CLI) | payer OTHER, SELFPAY ==
[2021-02-21 23:21] LABS: AFP, Serum 61.1 ng/mL (.); Estriol, Free 1.85 ng/mL (.); Inhibin A, Dimeric 133.16 pg/mL (.); Inhibin A, MoM 0.77 (.); Maternal Ethnicity Caucasian (.); Maternal Weight 126 lbs (.); Number of Fetuses No (.); OSBR Risk 1 IN 3048 (.); Results Report (.); Test Results *Screen Negative* (.); hCG, MoM 0.79 (.); hCG, Serum 31435 mIU/mL (.)
== END ==
PROVIDERS: Family Provider Obstetrics & Gynecology; PCP Family Medicine; Referring Provider Obstetrics & Gynecology; Visit Provider Obstetrics & Gynecology
DX: Z34.82 Encounter for supervision of other normal pregnancy, second trimester (principal); Z3A.17 17 weeks gestation of pregnancy
CPT/HCPCS: 36415; 82105; 82677; 84702; 86336

== ENCOUNTER → 2021-02-21 08:49 | Outpatient (CLI) | payer OTHER, SELFPAY ==
[2021-02-21] MEDS: COVID-19 VACC #2, MRNA(MOD) 100 MCG/0.5 ML VIAL IM (08:57)
== END ==
PROVIDERS: Family Provider Obstetrics & Gynecology; PCP Family Medicine; Visit Provider Internal Medicine
DX: Z23 Encounter for immunization (principal)
CPT/HCPCS: 0012A; 91301

== ENCOUNTER → 2021-03-12 09:01 | Outpatient (CLI) | payer OTHER, SELFPAY ==
--- NOTE | 2021-03-12 09:02 | DI.US.S_ITS ---
PROCEDURE: US OB >= 14 WEEKS FETUS INDICATIONS: Anatomy Scan OUTSIDE/PRIOR DATING DATA: Last menstrual period (LMP): 10/26/20. LMP-based estimated date of delivery (BILL): 08/02/21 . First dating scan (date and location): 12/25/[address] Carvalho . Estimated date of delivery (BILL) from first dating scan: 07/29/[address] Carvalho . TECHNIQUE: Real-time scanning was performed of the fetus, with image documentation and biometric measurements. Endovaginal scanning: Not needed COMPARISON: Prior OB ultrasound for this . FINDINGS: General: A single living intrauterine gestation is present. Presentation: Variable. Placenta: Placental position is posterior , without previa. Amniotic fluid index: 16.1 cm, normal range is 5-24 cm. heart rate: 149 beats per minute. Maternal cervical canal: 3.6 cm long. Normal lower limit is 2.5 cm. biometrics: Biparietal diameter: 4.9 cm, 20 weeks 6 days Head circumference: 17.7 cm, 20 weeks 1 day Abdominal circumference: 15.5 cm, 20 weeks 5 days Femur length: 3.2 cm, 20 weeks 0 days Estimated gestational age from initial scan: 20 weeks 1 day Composite gestational age from present scan: 20 weeks 3 days Estimated weight and percentile: 349 g, 58th percentile Measurement variability for biometric dating: +/- 7 days from 14 weeks to 15 weeks 6 days gestation, +/- 10 days from 16 weeks to 21 weeks 6 days gestation, +/- 2 weeks from 22 weeks to 27 weeks 6 days gestation, +/- 3 weeks for 28 weeks gestation or later. weight reference: 4500 g or EFW >90/95% is considered macrosomia or large for gestational age. EFW <10% is small for gestational age. EFW 5% or less is considered intra-uterine growth restriction. Anatomic survey: Neuro: Ventricles are non-dilated at less than 10 mm. Cisterna magna is normal at 3-11 mm. Cerebellum is normal in size and morphology. Nuchal skin fold: Normal at less than 6 mm between 14-21 weeks gestational age. Face: Nose and lips, facial profile are normal. Spine: No evidence for spina bifida. Heart: 4-chambered heart is present, with normal ventricular outflow tracts. Diaphragm: Diaphragm is intact. Stomach: Left-sided stomach is present. Kidneys: No hydronephrosis. Normal is less than 5 mm in 2nd trimester, less than 7 mm in 3rd trimester. Cord: 3-vessel cord has orthotopic insertion. Bladder: Normal in size. Extremities: All 4 extremities identified. IMPRESSION: Appropriate interval growth, no anomaly seen. The delivery date is projected to be centered on 07/29/21. Dictated by: Chaka Workman M.D. on 03/12/2021 at 15:01 Approved by: Chaka Workman M.D. on 03/12/2021 at 15:04
== END ==
PROVIDERS: Family Provider Obstetrics & Gynecology; PCP Family Medicine; Referring Provider Obstetrics & Gynecology; Visit Provider Obstetrics & Gynecology
DX: Z34.82 Encounter for supervision of other normal pregnancy, second trimester (principal); Z3A.20 20 weeks gestation of pregnancy
CPT/HCPCS: 76811

== ENCOUNTER → 2021-04-16 08:37 | Outpatient (CLI) | payer OTHER, SELFPAY ==
[2021-04-16 10:39] LABS: Hematocrit 35.3 % (36-46); Hemoglobin 11.9 g/dL (12.0-16.0)
[2021-04-16 10:47] LABS: GTT (PREG) 1 Hour PP 50gm Dose 95 mg/dL (76-139)
== END ==
PROVIDERS: Family Provider Obstetrics & Gynecology; PCP Family Medicine; Referring Provider Obstetrics & Gynecology; Visit Provider Obstetrics & Gynecology
DX: Z34.82 Encounter for supervision of other normal pregnancy, second trimester (principal); Z3A.26 26 weeks gestation of pregnancy
CPT/HCPCS: 36415; 82950; 85014; 85018

== ENCOUNTER 2021-06-22 11:01 | Observation (INO) | payer OTHER, SELFPAY ==
[2021-06-22] MEDS: NIFEdipine 10 MG CAPSULE PO ×4 (11:45→12:47)
--- NOTE | 2021-06-22 11:55 | P.TNLD_ITS ---
Visit Information Visit Information Date of evaluation: 06/22/21 Primary OB Provider: Olivia Carvalho On-call OB Provider: Augusta Carpenter Reason for Evaluation: Yes pre-term labor Comments/Additional reasons for admission: Patient is a 30-year-old at 34 weeks and 5 days gestation. Approximately an hour prior to arrival she was feeling extreme pain in her right side going down into her groin and up to the top of her belly. Upon arrival to the center patient reported that the pain was still there but better than at home and she rated it a 3/10. Denies leaking or bleeding and reports good movement. She states with the way the pain is now she probably would not have come in, and though she was found to be sofya every 2-3 minutes on the monitor. Denies urinary symptoms, change in vaginal discharge or vaginal odor. She has been hydrating well at home. Her is currently [place] the [employer] and may not be back for delivery. has been uncomplicated with Dr. Carvalho. She did have contractions at 36 weeks with her first but went on to be induced at 39 weeks and have an uncomplicated vaginal delivery. History is also significant for a LEEP in 2013. Vital Signs Vital Signs: Temperature 36.6? blood pressure 124/76 heart rate 89 PFSH Medical History Abnormal Pap smear of cervix Anal fissure (~2016) Anxiety (12/17/15) Bronchitis Chronic fatigue (12/17/15) HPV (human papilloma virus) infection (~2013) Hypokalemia Learning disorder (12/17/15) Left serous otitis media Ovarian cyst (~09/2020) Palpitations (12/17/15) Rash (~2016) Sinusitis (spontaneous vaginal delivery) (~03/12/17) Surgical History Anesthesia History of dilation and curettage (~09/27/20) History of laparoscopy (~09/27/20) History of tonsillectomy (05/2005) Status post loop electrosurgical excision procedure (LEEP) of cervix (08/2014) Cornucopia teeth extracted (~2006) Family History Grandfather Cancer Pancreatic cancer Grandfather Pacemaker Dementia Brother No problems noted. Father No problems noted. Grandmother Unknown whether patient has any health problems Arthritis Mother No problems noted. Grandmother Unknown whether patient has any health problems Sister No problems noted. Social History marital status: number of children: 1 household members: spouse and children lives independently: Yes pets and animals: Yes (X 1 dog) education level: college (Ass. 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 Portable special nelly needs: No Smoking Status: Never smoker alcohol intake: former (pre-) substance use type: does not use Evaluation Evaluation Baseline heart rate: 140 Variability: Moderate (11-25) monitor accelerations: Present Monitor Decelerations: Absent Contraction Frequency (minutes): 2 Uterine Contraction Intensity: Moderate Category of Tracing: Reactive Status: Category l Cervical dilation (cm): 1 Cervical effacement (%): 50 station: -1 Diagnosis, Plan/Disposition Final Diagnosis (1) 34 weeks gestation of : Status: Acute Plan/Disposition Plan: 30-year-old at 34 weeks and 5 days who presented to the center with moderate contractions every 2-3 minutes. No leaking of fluid or bleeding. No urinary or vaginal symptoms. After arriving in the center patient reported that contractions felt much less intense than at home but she was still feeling them. Initial SVE was 1/50/-1. She was given betamethasone for lung maturity and nifedipine 10 mg x4 doses with improvement in contractions but not resolution. She was monitored in the center for 4 hours and contractions ceased so SVE not repeated. UA was negative but urine sent for culture. Wet prep negative. GBS collected came back positive. She is scheduled in clinic tomorrow and well versed in return precautions (leaking, bl eeding, painful contractions).
[2021-06-22 11:58] LABS: RBC Urine None Seen (0-5/HPF)
[2021-06-22 12:00] LABS: Appearance Urine UA CLEAR; Bilirubin Urine UA NEGATIVE (NEGATIVE); Color Urine UA YELLOW; Glucose Urine UA NEGATIVE (Negative); Ketones Urine UA NEGATIVE (NEGATIVE); Leukocyte Esterase Urine UA TRACE (NEGATIVE); Nitrite Urine UA NEGATIVE (Negative); Occult Blood Urine UA NEGATIVE (Negative); Protein Urine UA NEGATIVE (Negative); Specific Gravity Urine UA <=1.005 (1.000-1.035); Urobilinogen Urine UA 0.2 E.U./dL (0.2)
[2021-06-22 12:01] LABS: pH Urine UA 6.5 (4.5-8.0)
[2021-06-22 12:06] LABS: Bacteria Urine Few (2-10); Squamous Epithelial Cell Urine 10-30 /HPF (0-5/HPF); WBC Urine 0-1/HPF (0-5/HPF)
[2021-06-22 12:07] LABS: Culture Indicated Urine Cult Not Indicated
[2021-06-22 13:13] LABS: Strep Grp B PCR POS for Grp B Strep
[2021-06-22] MEDS: BETAMETHASONE 30 MG/5 ML MDV 12 MG IM (13:59)
== END 2021-06-22 16:00 | disposition home or self-care (01) ==
PROVIDERS: Admitting Provider Family Medicine; PCP Family Medicine; Referring Provider Family Medicine; Visit Provider Family Medicine
DX: O47.03 False labor before 37 completed weeks of gestation, third trimester (principal); Z3A.34 34 weeks gestation of pregnancy
CPT/HCPCS: 59025; 59050; 81001; 87086; 87210; 87653; 96372; G0378; G0379; J0702

== ENCOUNTER 2021-07-01 12:28 | Outpatient (RCR) | payer OTHER, SELFPAY ==
--- NOTE | 2021-07-01 16:00 | PT.OIE ---
Current Diagnoses Sacrococcygeal disorders, not elsewhere classified (07/01/21) Encounter for supervision of normal , unspecified, unspecified trimester (07/01/21) Past Medical History (Last Reviewed 06/22/21 @ 13:55 by Augusta Carpenter DO) Abnormal Pap smear of cervix Anal fissure (~2016) Anxiety (12/17/15) Bronchitis Chronic fatigue (12/17/15) History of dilation and curettage (~09/27/20) History of laparoscopy (~09/27/20) HPV (human papilloma virus) infection (~2013) Hypokalemia Learning disorder (12/17/15) Left serous otitis media Ovarian cyst (~09/2020) Palpitations (12/17/15) Rash (~2016) Sinusitis (spontaneous vaginal delivery) (~03/12/17) [place] teeth extracted (~2006) Past Surgical History (Last Reviewed 06/22/21 @ 13:55 by Augusta Carpenter DO) Anesthesia History of dilation and curettage (~09/27/20) History of laparoscopy (~09/27/20) History of tonsillectomy (05/2005) Status post loop electrosurgical excision procedure (LEEP) of cervix (08/2014) [place] teeth extracted (~2006) Visit Care Team Role Provider Type Du Maier MD Primary Care Provider Physician Specialty: Family Practice Address: [address] [place] [address] Email: [email or web address] Olivia Carvalho MD Attending Provider Physician Referring Provider Specialty: Gynecology CURED MEAT PACKING SUPERVISOR Obstetrics Address: [address] [place] [address] Email: [email or web address] Physical Therapy Initial Evaluation PT-OP-A Visit Information Start: 06/30/21 08:08 Freq: Status: Active Protocol: Document 07/01/21 12:45 AMB (Rec: 07/01/21 15:44 AMB [email or web address]) Out-Patient Physical Therapy Visit Information Visit Information Visit Type Initial Evaluation Visit Start Time 12:45 Visit Stop Time 13:30 Total Visit Minutes 45 Visit Number 1 Precautions Precautions 37 weeks PT-OP-B Current Condition Start: 06/30/21 08:08 Freq: Status: Active Protocol: Document 07/01/21 12:45 AMB (Rec: 07/01/21 15:44 AMB [email or web address]) Current Condition History of Current Condition Onset Date 4 years ago Current Complaints coccyx pain History of Current Condition Lourdes had a coccyx fracture with the of her daughter . She had a couple of years of pain with sitting and moving from sit to stand. She is very with her second child and is concerned about re-injury. PT-OP-F Manual Assessment Start: 06/30/21 08:08 Freq: Status: Active Protocol: Document 07/01/21 12:45 AMB (Rec: 07/02/21 08:10 AMB [email or web address]) Manual Assessments Other Manual Assessments Other Manual Assessments R ASIS and medial malleolous high PT-OP-T Assessment and Plan Start: 06/30/21 08:08 Freq: Status: Active Protocol: Document 07/01/21 12:45 AMB (Rec: 07/02/21 08:10 AMB [email or web address]) Physical Therapy Assessment Rehab Potential Rehabilitation Potential Good Evaluation Complexity Number of Personal Factors/Comorbidities 1-2 Number of Body Systems Impaired 1-2 Clinical Presentation at Evaluation Stable Impairments Impairments Pain Goals Two Impairment Pelvic floor strength Short Term Goal (STG) Lourdes will contract her pelvic floor for 10 seconds in standing without compensation. STG Duration 10 weeks Opera Singer Goal (LTG) Lourdes will have appropriate pelvic floor strength to return to weight lifting. LTG Duration 12 weeks One Impairment Coccyx pain Short Term Goal (STG) Lourdes will move from sit to stand without coccyx pain. STG Duration 10 weeks Opera Singer Goal (LTG) Lourdes will sit for 1 hour without coccyx pain. LTG Duration 12 weeks Assessment Summary Assessment Discussed birthing positions, self perineal massage, breathing and pelvic floor relaxation to avoid further trauma with this upcoming . Lourdes declined further pelvic floor assessments and did not perform any coccyx assessments today due to her induction being 3 weeks away. Will want to do a reassessment after her upcoming . Physical Therapy Plan Frequency and Duration Frequency of Treatment 1x/Week Duration of Treatment 12 weeks Plan of Care Start Date 07/01/21 Plan of Care End Date 11/23/21 Therapeutic Interventions Therapeutic Interventions Home Exercise Program,Manual Therapy,Neuromuscular Re- education,Self-Care/Home Management,Therapeutic Activities,Therapeutic Exercises Modalities Biofeedback,Cold Pack/Ice Massage,Electric Stimulation, Hot Packs Next Visit Focus/Plan Next Note Type Re-Evaluation
--- NOTE | 2021-07-01 16:00 | PT.OPPOC ---
Physical, Occupational & Speech Therapy At [facility] Current Diagnoses Sacrococcygeal disorders, not elsewhere classified (07/01/21) Encounter for supervision of normal , unspecified, unspecified trimester (07/01/21) Visit Care Team Role Provider Type Du Maier MD Primary Care Provider Physician Specialty: Family Practice Address: [address] [place] [address], [address] Email: [email or web address] Olivia Carvalho MD Attending Provider Physician Referring Provider Specialty: Gynecology TECHNICIAN CHEMICAL CLEANING Obstetrics Address: [address] [place] [address], [address] Email: [email or web address] Plan Of Care PT-OP-T Assessment and Plan Start: 06/30/21 08:08 Freq: Status: Active Protocol: Document 07/01/21 12:45 AMB (Rec: 07/02/21 08:10 AMB [email or web address]) Physical Therapy Assessment Rehab Potential Rehabilitation Potential Good Evaluation Complexity Number of Personal Factors/Comorbidities 1-2 Number of Body Systems Impaired 1-2 Clinical Presentation at Evaluation Stable Impairments Impairments Pain Goals Two Impairment Pelvic floor strength Short Term Goal (STG) Lourdes will contract her pelvic floor for 10 seconds in standing without compensation. STG Duration 10 weeks Custodial Goal (LTG) Lourdes will have appropriate pelvic floor strength to return to weight lifting. LTG Duration 12 weeks One Impairment Coccyx pain Short Term Goal (STG) Lourdes will move from sit to stand without coccyx pain. STG Duration 10 weeks Supervisor Heavy Equipment Goal (LTG) Lourdes will sit for 1 hour without coccyx pain. LTG Duration 12 weeks Assessment Summary Assessment Discussed birthing positions, self perineal massage, breathing and pelvic floor relaxation to avoid further trauma with this upcoming . Lourdes declined further pelvic floor assessments and did not perform any coccyx assessments today due to her induction being 3 weeks away. Will want to do a reassessment after her upcoming . Physical Therapy Plan Frequency and Duration Frequency of Treatment 1x/Week Duration of Treatment 12 weeks Plan of Care Start Date 07/01/21 Plan of Care End Date 09/23/21 Therapeutic Interventions Therapeutic Interventions Home Exercise Program,Manual Therapy,Neuromuscular Re- education,Self-Care/Home Management,Therapeutic Activities,Therapeutic Exercises Modalities Biofeedback,Cold Pack/Ice Massage,Electric Stimulation, Hot Packs Next Visit Focus/Plan Next Note Type Re-Evaluation Plan of Care Dates Plan of Care Start Date 07/01/21 Plan of Care End Date 09/23/21 Electronically Signed by: Cecile Ayers, PT 07/02/21 0811 Please Sign and Return: I have reviewed this Plan of Care and certify that the skilled therapy services above are required to meet the patient?s needs. Physician Signature Date Printed Name and Credentials Clinical Instructor Signature Printed Name and Credentials
--- NOTE | 2021-09-04 15:54 | PT.OPDS ---
Current Diagnoses Sacrococcygeal disorders, not elsewhere classified (07/01/21) Visit Care Team Role Provider Type Du Maier MD Primary Care Provider Physician Specialty: Family Practice Address: [facility] [place], [address] Email: [email or web address] Olivia Carvalho MD Attending Provider Physician Referring Provider Specialty: Gynecology TILE MOLDER HAND Obstetrics Address: [address] [place] [address], [address] Email: [email or web address] Visit Number Visit Number 1 Discharge Summary PT-OP-B Current Condition Start: 06/30/21 08:08 Freq: Status: Active Protocol: Document 07/01/21 12:45 AMB (Rec: 07/01/21 15:44 AMB [email or web address]) Current Condition History of Current Condition Onset Date 4 years ago Current Complaints coccyx pain History of Current Condition Lourdes had a coccyx fracture with the of her daughter . She had a couple of years of pain with sitting and moving from sit to stand. She is very with her second child and is concerned about re-injury. PT-OP-F Manual Assessment Start: 06/30/21 08:08 Freq: Status: Active Protocol: Document 07/01/21 12:45 AMB (Rec: 07/02/21 08:10 AMB [email or web address]) Manual Assessments Other Manual Assessments Other Manual Assessments R ASIS and medial malleolous high PT-OP-T Assessment and Plan Start: 06/30/21 08:08 Freq: Status: Active Protocol: Document 09/04/21 15:53 AMB (Rec: 09/04/21 15:54 AMB [email or web address]) Physical Therapy Plan Discharge Physical Therapy Discharge Reasons Patient Request Discharge Comments Pt has not been seen since evaluation, she has canceld all of her appointments, would need a new referral to return .
== END 2021-09-08 11:58 ==
LOC: PHYS 12:28
PROVIDERS: PCP Family Medicine; Referring Provider Obstetrics & Gynecology; Visit Provider Obstetrics & Gynecology
DX: M53.3 Sacrococcygeal disorders, not elsewhere classified (principal); Z33.1 Pregnant state, incidental
CPT/HCPCS: 97161

== ENCOUNTER 2021-07-18 14:45 | Outpatient (CLI) | payer OTHER, SELFPAY | END 2021-07-18 15:25 | disposition home or self-care (01) | LOC: OB 07-22 06:59 | PROVIDERS: PCP Family Medicine; Referring Provider Obstetrics & Gynecology; Visit Provider Obstetrics & Gynecology | DX: O26.893 Other specified pregnancy related conditions, third trimester (principal); R10.2 Pelvic and perineal pain; Z3A.39 39 weeks gestation of pregnancy | CPT/HCPCS: 59025; 84112; G0378; G0379 ==

== ENCOUNTER 2021-07-19 17:48 | Inpatient (IN) | payer OTHER, SELFPAY ==
[2021-07-19] MEDS: LACTATED RINGERS 1,000 ML 100 ML IV (18:10)
[2021-07-19] MEDS: PENICILLIN G POTASSIUM 5,000,000 UNIT in DEXTROSE 5% IN WATER 250 ML IV (18:10)
[2021-07-19 18:54] LABS: Add Manual Diff / Slide Review NO; Basophils Absolute Auto 0 /uL (0-100); Basophils Percent Auto 0.3 % (0-2); Eosinophils Absolute Auto 0 /uL (0-450); Eosinophils Percent Auto 0.3 % (2-4); Hematocrit 41.5 % (36-46); Hemoglobin 14.2 g/dL (12.0-16.0); Lymphocytes Absolute Auto 2800 /uL (1100-4500); Lymphocytes Percent Auto 20.7 % (25-40); Mean Corpuscular HGB Conc 34.3 % (30-36); Mean Corpuscular Hemoglobin 31.4 PG (26-34); Mean Corpuscular Volume 91.6 fL (80-100); Monocytes Absolute Auto 1100 /uL (0-900); Neutrophils Absolute Auto 9400 /uL (1500-7000); Neutrophils Percent Auto 70.7 % (50-75); Platelet Count 257 X10^3/uL (150-400); Red Blood Cell Count 4.53 X10^6/uL (4.0-5.2); Red Cell Distribution Width 12.4 % (11.6-14.8); White Blood Cell Count 13.3 X10^3/uL (4.5-11.0)
[2021-07-19 19:51] LABS: COVID19 - ADMIT (NP swab/PCR) Negative (Negative)
--- NOTE | 2021-07-19 19:54 | PM.OBHP.1 ---
OB HPI Date/Time Date of admission: 07/19/21 Date Patient Seen: 07/19/21 Time Patient Seen: 19:55 History of Present Condition Chief complaint: : 3 Para: 1 Estimated Date of Delivery: 07/29/21 Estimated Gestational Age (weeks): 38+4 Narrative: Rajani Francis is a 30 year old female 3 para 1 at 38-,4/7 weeks gestation who presented to Labor and delivery at 5 cm dilated, and ruptured membranes and progressed quickly and had a precipitous delivery. Indications Indication for induction OB: history of rapid labor History of Present care: good care, initiated at week # (9), number of visits (10) and pounds weight gain (47) Dating criteria: LMP confirmed by 1st trimester US Ultrasounds: normal 1st trimester US and normal mid trimester US Obstetrical complications: none Medical complications: none Preadmission Labs Blood type: O (+) positive -: Antibody screen: negative, GBS status: positive, HBsAG: negative, HIV: negative and RPR/VDLR: negative -: Chlamydia screen: not detected and Gonorrhea screen: not detected -: Rubella: immune and Varicella: immune HCT: 41.5 HCAB: negative PAP: Normal Quad screen: Normal Urine: Negative 1 hr GTT: 95 Prior (ies) History: 1 Ectopic requiring surgery Evaluation Evaluation Baseline heart rate: 130 Variability: Moderate (11-25) monitor accelerations: Present Monitor Decelerations: Absent Contraction Frequency (minutes): 2 Uterine Contraction Intensity: Strong/Firm Status: Category l Cervical dilation (cm): 10 Cervical effacement (%): 100 station: +2 [facility] Medical History Abnormal Pap smear of cervix Anal fissure (~2016) Anxiety (12/17/15) Bronchitis Chronic fatigue (12/17/15) HPV (human papilloma virus) infection (~2013) Hypokalemia Learning disorder (12/17/15) Left serous otitis media Ovarian cyst (~09/2020) Palpitations (12/17/15) Rash (~2016) Sinusitis (spontaneous vaginal delivery) (~03/12/17) Surgical History Anesthesia History of dilation and curettage (~09/27/20) History of laparoscopy (~09/27/20) History of tonsillectomy (05/2005) Status post loop electrosurgical excision procedure (LEEP) of cervix (08/2014) [place] teeth extracted (~2006) Family History Grandfather Cancer Pancreatic cancer Grandfather Pacemaker Dementia Brother No problems noted. Father No problems noted. Grandmother Unknown whether patient has any health problems Arthritis Mother No problems noted. Grandmother Unknown whether patient has any health problems Sister No problems noted. Social History marital status: number of children: 1 household members: spouse and children lives independently: Yes pets and animals: Yes (X 1 dog) education level: college (Ass. 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: No Smoking Status: Never smoker alcohol intake: former (pre-) substance use type: does not use Meds Home Medications and Allergies Home Medications Medication Instructions Recorded Confirmed Type prenat.vits,velasquez,[id number] 1 tab PO DAILY 08/28/20 07/16/21 History Allergies Allergy/AdvReac Type Severity Reaction Status Date / Time No Known Drug Allergies Allergy Verified 07/16/21 09:53 Exam Narrative Exam Narrative: Generally: Patient using nitrous oxide, in moderate distress Estimated weight: 8 lb Extremities: No edema Objective Labs Result Diagrams: 07/19/21 18:25 Labs: Laboratory Results - last 24 hr 07/19/21 07/19/21 07/19/21 18:25 18:25 18:25 WBC 13.3 H RBC 4.53 Hgb 14.2 Hct 41.5 MCV 91.6 MCH 31.4 MCHC 34.3 RDW 12.4 Plt Count 257 Neut % (Auto) 70.7 Lymph % (Auto) 20.7 L [place] % (Auto) 8.0 Eos % (Auto) 0.3 L Baso % (Auto) 0.3 Neut # (Auto) 9400 H Lymph # (Auto) 2800 [place] # (Auto) 1100 H Eos # (Auto) 0 Baso # (Auto) 0 SARS-CoV-2 (PCR) Negative Blood Type O Positive Antibody Screen Negative Assessment and Plan Assessment and Plan Assessment and Plan narrative: Assessment: 30-year-old 3 para 1 at 38-,4/7 weeks gestation status post spontaneous rupture membranes at home who presented at 5 cm and progressed quickly to complete dilation Plan: Expected management to spontaneous vaginal delivery Time Spent with Patient Total time spent with greater than 50% in coordination of care (as documented) at patient's floor/unit and/or counseling patient:: 25 - 35 minutes
--- NOTE | 2021-07-19 19:59 | PM.OBPRVD ---
Labor & Delivery Delivery date: 07/19/21 Intrapartal Events: Precipitous Labor < 3 hours Cervical ripening method: none Induction method: none Delivery monitor: external FHT Route of delivery: Episiotomy description: None L&D Laceration Description: None Estimated blood loss (mL): 200 Anesthesia Type: Other (Nitrous oxide) Complications: None Narrative: Patient complete and pushed with 3 contractions. At 7:12 p.m., a live male delivered spontaneously in the JUSTIN presentation. Nuchal cord x2 were reduced on the perineum. The remainder of the body delivered without difficulty and infant was placed on mom's abdomen. After the cord stopped pulsing, the cord was double clamped and cut. Pitocin was given in the IV fluids. The placenta delivered intact with a three-vessel cord at 7:26 p.m.. The fundus was massaged to firm. Estimated blood loss 200 cc. The perineum and vagina were inspected and there were no lacerations. Analgesia: Nitrous oxide. . Apgars 9 at 1 minute and 9 at 5 minutes. Mom and stable to recovery. [place] Baby 1: Infant gender: Male Presentation: vertex Position: Left Occiput Anterior Placenta delivery description: Spontaneous Cord Vessel Description: 3 Vessels, Nuchal Cord (x2), Loose and Reduced score (1 min): 9 score (5 min): 9 weight: 7 lb 4 oz Plan for aftercare: Routine care
[2021-07-19 20:27] VITALS: BP 117/75
[2021-07-19] MEDS: IBUPROFEN 600 MG TABLET PO (20:42)
[2021-07-19] MEDS: ACETAMINOPHEN 325 MG TABLET 650 MG PO (20:43)
[2021-07-20] MEDS: IBUPROFEN 600 MG TABLET PO ×2 (02:30→08:48)
[2021-07-20] MEDS: ACETAMINOPHEN 325 MG TABLET 650 MG PO (02:31)
[2021-07-20 06:13] LABS: Hematocrit 35.7 % (36-46); Hemoglobin 11.9 g/dL (12.0-16.0)
[2021-07-20] MEDS: DOCUSATE 100 MG CAPSULE PO (08:48)
[2021-07-20] MEDS: PRENATAL VIT,CALC/IRON/FOLIC 1 TABLET 1 TAB PO (08:48)
--- NOTE | 2021-07-20 10:32 | PM.OBDS.1 ---
Discharge Providers Provider Date of admission: 07/19/21 17:48 Discharge Date: 07/20/21 Primary care physician: Du Maier MD Consults: 07/19/21 18:39 Consult to Anesthesiology Urgent Comment: Consulting Provider: Anesthesiologist Reason for consultation: epidural Has provider been notified: Yes 07/20/21 20:02 Consult to Director Of Laboratory Operations Routine Comment: Discharge provider: Olivia Carvalho MD Summary Hospital Course Date Patient Seen: 07/20/21 Diagnoses: 38-,4/7 weeks gestation Precipitous labor and delivery Group B strep positive Hospital Course: Patient is a 30-year-old 3 para 2 who presented to Labor and delivery at 38-,4/7 weeks gestation in active labor. She progressed rapidly to complete dilation and had a spontaneous vaginal delivery without complication. Her course was unremarkable and she is discharged home on day # 1. Peripartum Data Delivery Method: Natural Vaginal Laceration Description: None Episiotomy description: None Procedures: Spontaneous vaginal delivery complications: none 1: Gender: Male Disposition of : home Status at Discharge Cognitive/behavioral status at discharge: oriented Functional status at discharge: independent ambulation Overall status at discharge: patient is progressing back to baseline Time Spent with Patient Time attestation: Total time spent providing and/or coordinating discharge services: Time spent: Less than 30 minutes Objective Labs Result Diagrams: 07/20/21 05:53 Labs: Laboratory Results - last 24 hr 07/19/21 07/19/21 07/19/21 18:25 18:25 18:25 WBC 13.3 H RBC 4.53 Hgb 14.2 Hct 41.5 MCV 91.6 MCH 31.4 MCHC 34.3 RDW 12.4 Plt Count 257 Neut % (Auto) 70.7 Lymph % (Auto) 20.7 L [place] % (Auto) 8.0 Eos % (Auto) 0.3 L Baso % (Auto) 0.3 Neut # (Auto) 9400 H Lymph # (Auto) 2800 [place] # (Auto) 1100 H Eos # (Auto) 0 Baso # (Auto) 0 SARS-CoV-2 (PCR) Negative Blood Type O Positive Antibody Screen Negative 07/20/21 05:53 WBC RBC Hgb 11.9 L Hct 35.7 L MCV MCH MCHC RDW Plt Count Neut % (Auto) Lymph % (Auto) [place] % (Auto) Eos % (Auto) Baso % (Auto) Neut # (Auto) Lymph # (Auto) [place] # (Auto) Eos # (Auto) Baso # (Auto) SARS-CoV-2 (PCR) Blood Type Antibody Screen Exam Narrative Exam Narrative: Generally: Patient is sitting up in bed, holding , no acute distress Fundus: Firm at U -1 Extremities: Negative Homans, no edema Discharge Plan Discharge Plan Patient Disposition: Home Provider Discharge Comment: Call with fever, chills, or bleeding vaginally more than a pad an hour Ibuprofen 600 mg every 6 hours as needed for cramping Discharge orders & Medications Prescriptions: Continued prenat.vits,velasquez,[id number] Tablet 1 tab PO DAILY RF: 0 Follow up/Referrals: Olivia Carvalho MD [Physician] - 6 Weeks Diet/Activity/Treatments Diet: Regular Activity: Nothing in the vagina for 6 weeks Skin/Wound/Dressing Care Report to your healthcare provider any signs of infection, such as:: chills, fever, increased pain and unusual drainage Visit Report/Discharge Packet Instructions: DI for Labor and Delivery, Vaginal Discharge Data Primary Care Provider: Du Maier
[2021-07-20 11:02] VITALS: BP 108/69; PULSE 81; RESP 16; TEMP 36.9
== END 2021-07-20 13:58 | disposition home or self-care (01) | DRG 807 ==
PROVIDERS: Obstetrics & Gynecology; Admitting Provider Family Medicine; PCP Family Medicine; Referring Provider Family Medicine; Visit Provider Family Medicine
DX: O62.3 Precipitate labor (principal); Z37.0 Single live birth; Z3A.38 38 weeks gestation of pregnancy; O69.81X0 Labor and delivery complicated by cord around neck, without compression, not applicable or unspecified
CPT/HCPCS: 36415; 59050; 59400; 84112; 85014; 85018; 85025; 86850; 86900; 86901; 87635; C9803; G0379; J2540

== ENCOUNTER → 2022-03-18 15:38 | Outpatient (CLI) | payer OTHER, SELFPAY ==
[2022-03-18 16:41] LABS: COVID19 -Nasal RAPID Negative (Negative)
== END ==
PROVIDERS: PCP Family Medicine; Visit Provider Obstetrics & Gynecology
DX: Z20.822 Contact with and (suspected) exposure to COVID-19 (principal); Z01.812 Encounter for preprocedural laboratory examination
CPT/HCPCS: 87635

== ENCOUNTER 2022-03-19 06:45 | Day surgery (SDC) | payer OTHER, SELFPAY ==
[2022-03-19] VITALS (8 sets, daily range): BP systolic 104–123; BP diastolic 56–83; PULSE 76–105; RESP 12–20; TEMP 36.6–37.1; O2SAT 98–100; BMI 20.9
--- NOTE | 2022-03-19 | PATH_ITS ---
[facility] Accession Number: [id number] . 01 Material submitted: . fallopian tube - LEFT TUBE . 01 Diagnosis: Left Tube: Fallopian tube x1, complete cross-sections, with a benign paratubal cyst (6 mm). Negative for atypia or malignancy. MRV 03/25/2022 1401 Local . 01 Electronically signed: . Adriana Alcocer MD, Pathologist NPI- [id number] . 01 Gross description: . Received in formalin, labeled with the patient's name and left tube consists of a single fimbriated fallopian tube (6.6 cm in length and 0.8 cm in greatest diameter) with a smooth violaceous serosa and a single cystic structure near the fimbriae filled with a clear semi-gelatinous fluid measuring 0.6 cm in greatest dimension. No other lesions are identified. Serial sectioning reveals an unremarkable stellate lumen. Quality Supervisor sections include perpendicular fimbriae, and office services representative cross-sections are submitted in cassette A1. ([id number]) /MRV 03/23/2022 1158 Local . 01 Pathologist provided ICD-10: Z30.2, Z87.59 . 01 CPT . 480354 Specimen Comment: A courtesy copy of this report has been sent to [phone] Specimen Comment: [id number] Performed at: 01 [facility] [address] [place] [address], [place], [place] [id number] MD Anderson Linton MD Phone: [phone]
[2022-03-19] MEDS: LACTATED RINGERS 1,000 ML 42 ML IV ×2 (07:24→09:46)
[2022-03-19] MEDS: ACETAMINOPHEN 325 MG TABLET 975 MG PO (07:30)
--- NOTE | 2022-03-19 07:58 | P.HP_ITS ---
History of Present Illness History of Present Illness Date Patient Seen: 03/19/22 Time Patient Seen: 07:59 Chief complaint: LAP L SALPINGECTOMY Narrative: Patient is a 31 year old who presents for a laparoscopic left salpingectomy. Previously had the right tube removed for an ectopic . Patient History Medical History Abnormal Pap smear of cervix Anal fissure (~2016) Anxiety (12/17/15) Bronchitis Chronic fatigue (12/17/15) HPV (human papilloma virus) infection (~2013) Hypokalemia Learning disorder (12/17/15) Left serous otitis media Ovarian cyst (~09/2020) Palpitations (12/17/15) Rash (~2016) Sinusitis (spontaneous vaginal delivery) (~03/12/17) Surgical History Anesthesia History of dilation and curettage (~09/27/20) History of laparoscopy (~09/27/20) History of tonsillectomy (05/2005) Status post loop electrosurgical excision procedure (LEEP) of cervix (08/2014) [place] teeth extracted (~2006) Family & Social History Family History Grandfather Cancer Pancreatic cancer Grandfather Pacemaker Dementia Brother No problems noted. Father No problems noted. Grandmother Unknown whether patient has any health problems Arthritis Mother No problems noted. Grandmother Unknown whether patient has any health problems Sister No problems noted. Social History: household members spouse,children lives independently Yes Tobacco & Substance use: Smoking Status Never smoker alcohol intake former alcohol intake frequency 0-2 drinks per day Substance Use Type does not use Meds Home Medications and Allergies Home Medications Medication Instructions Recorded Confirmed Type prenat.vits,velasquez,[id number] 1 tab PO DAILY 08/28/20 03/17/22 History clotrimazole 1 % topical cream 1 applic TOPICAL BID #30 g 09/03/21 03/17/22 Rx (Lotrimin AF (clotrimazole)) norethindrone acetate 1 mg-ethinyl 1 tab PO DAILY #63 tab 09/03/21 03/17/22 Rx estradiol 20 mcg tablet (Luan) Allergies Allergy/AdvReac Type Severity Reaction Status Date / Time No Known Drug Allergies Allergy Verified 03/19/22 07:18 Exam Vital Signs (past 8 hours): - 03/19/22 07:20 Temperature 98.6 F Pulse Rate 89 Respiratory Rate 20 Blood Pressure 123/83 Pulse Oximetry 100 Oxygen Delivery Method Room Air Narrative Exam Narrative: HEENT: No thyromegaly, no anterior cervical or supraclavicular lymphadenopathy. Lungs:Clear to auscultation bilaterally, no wheezes. Cardiovascular: Regular rate and rhythm, no murmurs, rubs, or gallops. Abdomen: Well-healed laparoscopy No hepatosplenomegaly. No masses palpable. External genitalia: Normal Vagina: Normal Cervix: Parous Bimanual exam: 6 Week size uterus. Mobile. No adnexal masses or tenderness. Extremities: No edema Assessment & Plan Assessment & Plan narrative: Assessment: A 31 year old who desires permanent sterilization Plan: Laparoscopic left salpingectomy The risks, benefits, and alternatives to the procedure were explained to the patient. The risks including bleeding, infection, injury to the bowel, bladder, or ureters. She understands these risks and agrees to proceed. A full par Q was held and consent form was signed. COVID-19 COVID-19 status: Negative Result date/Date tested (Pos, Neg/Pending): 03/18/22 Time Spent With Patient Time with patient: less than 30 minutes Critical Care time: I spent a total of [] minutes of critical care time on this patient's care today; this time is exclusive of procedural time.
--- NOTE | 2022-03-19 08:02 | PM.PREOP ---
Pre-operative Note COVID-19 COVID-19 status: Negative Result date/Date tested (Pos, Neg/Pending): 03/18/22 Criteria for continued procedure: Non-surgical alternatives not available or appropriate per current SOC Interval Note History & Physical reviewed/Exam performed by Physician: Yes Changes to H&P: No H&P completed within 30 days and has changed as indicated here:: 03/18/22
[2022-03-19] MEDS: BUPIVACAINE 0.5% W/ EPI (PF) 30 ML VIAL INJ (08:30)
--- NOTE | 2022-03-19 08:42 | SUR.OPER ---
Lithotomy on padded OR bed, head on pillow, arms secured on padded arm boards at <90 degrees abduction. Legs secured in padded yellow fins stirrups.
--- NOTE | 2022-03-19 09:28 | PM.GYNOP.1 ---
Operative Date/Time/Diagnoses Date of procedure: 03/19/22 Time of procedure: 09:28 Pre-op diagnosis: Desires permanent sterilization Post-op diagnosis: same Procedure & Clinicians Procedure: Procedures Operation Date: 03/19/22 07:45 Actual Procedure Side Surgeon p Laparoscopic Salpingectomy Left Olivia Carvalho MD Indications: Desires permanent sterilization Surgeon: Olivia Carvalho Anesthesia Type: General and Local Operative Notes Findings: Normal uterus Normal left tube and ovary Normal right ovary Right tube previously removed Normal liver and gallbladder Normal appendix Closure Type: primary Specimen(s): left tube Estimated blood loss (mL): 5 Blood products transfused: none Procedure in detail: After informed consent was obtained, the patient was taken to the operating room where she was placed in the dorsal supine position. After adequate general endotracheal anesthesia was achieved, she was placed in the dorsal lithotomy position, and prepped and draped in the usual sterile fashion. A time-out was performed. A bivalve speculum was placed into the vagina and the anterior lip of the cervix was grasped with a single-tooth tenaculum. Cervical os was sequentially dilated until the Zumi uterine manipulator could pass easily into the endometrial cavity. Single-tooth tenaculum was removed from the anterior lip of the cervix. The bivalve speculum was removed from the vagina. Attention was then turned to the abdomen where 6 cc of 0.5% Marcaine with epinephrine were injected in the umbilical fold. A 5 mm incision was made. The Veress needle was placed into the peritoneal cavity, and its placement confirmed by aspiration and drop test. The abdominal cavity was insufflated with 2.9 L of CO2. The Veress needle was removed, and a 5 mm trocar was placed without difficulty. Two other 5 mm incisions were made 4 cm lateral to the midline after 6 cc of 0.5% Marcaine with epinephrine were injected. Two 5 mm trocars were placed under direct visualization. The abdomen and pelvis were inspected with the findings noted above. The left tube was grasped with an atraumatic grasper. Using the power seal, the mesosalpinx was cauterized and cut all the way down to the cornua of the uterus. The tube was amputated with cautery at the cornua. The tube was brought through the right trocar. The pelvis was examined no bleeding was noted. The instruments were removed from the abdomen. The CO2 was allowed to escape. The umbilical incision was closed on the fascia with 0 Vicryl. All of the incisions were closed on the skin with 4-0 Monocryl in a subcuticular fashion. Steri-Strips and Allevyn dressings were placed. The Zumi uterine manipulator was removed from the uterus. Sponge, lap, and instrument counts were correct x2. The patient tolerated the procedure well, and was taken to PACU in stable condition. Complications: none Post-operative Condition: stable Disposition: PACU Plan for aftercare: Home after recovery
--- NOTE | 2022-03-19 10:21 | SUR.PHASEII ---
Discharge instructions reviewed with pt and she verbalized understanding.
== END 2022-03-19 10:35 | disposition home or self-care (01) ==
PROVIDERS: PCP Family Medicine; Referring Provider Obstetrics & Gynecology; Visit Provider Obstetrics & Gynecology
PROC: (CPT 58661; principal; 2022-03-19 07:45)
DX: Z30.2 Encounter for sterilization (principal); R53.82 Chronic fatigue, unspecified; N83.8 Other noninflammatory disorders of ovary, fallopian tube and broad ligament
CPT/HCPCS: 58661; 81025; J0330; J1100; J1885; J2250; J2405; J2704; J3010

== ENCOUNTER → 2022-07-21 09:07 | Outpatient (CLI) | payer OTHER, SELFPAY ==
[2022-07-21 09:36] LABS: Add Manual Diff / Slide Review NO; Basophils Absolute Auto 0 /uL (0-100); Basophils Percent Auto 0.5 % (0-2); Eosinophils Absolute Auto 0 /uL (0-450); Eosinophils Percent Auto 0.9 % (2-4); Hematocrit 40.9 % (36-46); Hemoglobin 13.8 g/dL (12.0-16.0); Lymphocytes Absolute Auto 1600 /uL (1100-4500); Lymphocytes Percent Auto 41.1 % (25-40); Mean Corpuscular HGB Conc 33.9 % (30-36); Mean Corpuscular Hemoglobin 30.8 PG (26-34); Monocytes Absolute Auto 300 /uL (0-900); Monocytes Percent Auto 8.7 % (3-14); Neutrophils Absolute Auto 1900 /uL (1500-7000); Neutrophils Percent Auto 48.8 % (50-75); Platelet Count 232 X10^3/uL (150-400); Red Blood Cell Count 4.49 X10^6/uL (4.0-5.2); Red Cell Distribution Width 12.4 % (11.6-14.8); White Blood Cell Count 3.9 X10^3/uL (4.5-11.0)
[2022-07-21 10:09] LABS: Alanine Aminotransferase 18 IU/L (<35); Albumin 4.7 g/dL (3.5-5.0); Albumin Globulin Ratio 1.8 (1.0-2.8); Alkaline Phosphatase 49 U/L (38-126); Aspartate Aminotransferase 28 IU/L (14-36); BUN Creatinine Ratio 24.6 (6-22); Bilirubin Total 0.7 mg/dL (0.2-1.3); Blood Urea Nitrogen 15 mg/dL (7-17); Calcium 9.3 mg/dL (8.4-10.2); Carbon Dioxide 25 mmol/L (22-32); Chloride 102 mmol/L (98-107); Estimated Glomerular Filt Rate > 60 mL/min (>60); Globulin 2.6 g/dL (1.7-4.1); Glucose 80 mg/dL (70-100); HEMOLYSIS 16 (0-50); Potassium 3.8 mmol/L (3.4-5.1); Sodium 138 mmol/L (137-145); Total Protein 7.3 g/dL (6.3-8.2)
[2022-07-21 10:40] LABS: TSH w/ Reflex to FT4 0.88 uIU/mL (0.47-4.68)
[2022-07-21 10:45] LABS: Ferritin 24 ng/mL (6-137)
== END ==
PROVIDERS: PCP Family Medicine; Referring Provider Family Medicine; Visit Provider Family Medicine
DX: R53.83 Other fatigue (principal)
CPT/HCPCS: 36415; 80053; 82728; 84443; 85025

== ENCOUNTER → 2022-08-09 13:43 | Outpatient (CLI) | payer OTHER, SELFPAY ==
--- NOTE | 2022-08-09 13:45 | DI.RAD.S_ITS ---
PROCEDURE: XR CHEST 2V INDICATIONS: Cough TECHNIQUE: 2 views of the chest were acquired. COMPARISON: [facility], , CHEST 1 VIEW, 04/16/2016, 22:16. [facility], , XR CHEST 2V, 11/06/2018, 9:49. FINDINGS: Surgical changes and devices: None. Lungs and pleura: Lungs are clear. No pleural effusions or pneumothorax. Mediastinum: Mediastinal contours are normal. Heart size is normal. Bones and chest wall: No suspicious bony abnormalities. Soft tissues appear unremarkable. IMPRESSION: Normal chest. No infiltrates. Dictated by: Jamie Bhatia M.D. on 08/09/2022 at 13:57 Approved by: Jamie Bhatia M.D. on 08/09/2022 at 13:57
== END ==
PROVIDERS: PCP Family Medicine; Referring Provider Nurse Practitioner Family; Visit Provider Nurse Practitioner Family
DX: R05.9 Cough, unspecified (principal)
CPT/HCPCS: 71046

== ENCOUNTER 2022-08-13 14:28 | Emergency (ER) | payer OTHER, SELFPAY ==
[2022-08-13] VITALS (10 sets, daily range): BP systolic 111–137; BP diastolic 59–85; PULSE 102–130; RESP 20–32; TEMP 36.9; O2SAT 96–99; BMI 20.6
--- NOTE | 2022-08-13 14:35 | DI.RAD.S_ITS ---
PROCEDURE: XR CHEST 2V INDICATIONS: shortness of breath TECHNIQUE: 2 views of the chest were acquired. COMPARISON: [facility], SEAN, XR CHEST 2V, 08/09/2022, 13:53. [facility], CR, XR CHEST 2V, 11/06/2018, 9:49. FINDINGS: Surgical changes and devices: None. Lungs and pleura: Patchy right basilar opacity, likely within the right lower lobe. No pleural effusion or pneumothorax. Mediastinum: Mediastinal contours are normal. Heart size is normal. Bones and chest wall: No suspicious bony abnormalities. Soft tissues appear unremarkable. IMPRESSION: Right basilar opacity is present that could represent pneumonia or aspiration in the appropriate clinical setting. Dictated by: Cale Diaz M.D. on 08/13/2022 at 15:26 Approved by: Cale Diaz M.D. on 08/13/2022 at 15:29
[2022-08-13 14:56] LABS: Add Manual Diff / Slide Review NO; Basophils Absolute Auto 0 /uL (0-100); Basophils Percent Auto 0.2 % (0-2); Eosinophils Absolute Auto 0 /uL (0-450); Eosinophils Percent Auto 0.1 % (2-4); Hematocrit 41.4 % (36-46); Hemoglobin 14.2 g/dL (12.0-16.0); Lymphocytes Absolute Auto 1000 /uL (1100-4500); Lymphocytes Percent Auto 4.9 % (25-40); Mean Corpuscular HGB Conc 34.3 % (30-36); Mean Corpuscular Hemoglobin 30.5 PG (26-34); Monocytes Absolute Auto 1100 /uL (0-900); Monocytes Percent Auto 5.4 % (3-14); Neutrophils Absolute Auto 17800 /uL (1500-7000); Neutrophils Percent Auto 89.4 % (50-75); Platelet Count 338 X10^3/uL (150-400); Red Blood Cell Count 4.65 X10^6/uL (4.0-5.2); Red Cell Distribution Width 11.6 % (11.6-14.8); White Blood Cell Count 19.9 X10^3/uL (4.5-11.0)
[2022-08-13 15:02] LABS: Lactate (Lactic Acid) 1.2 mmol/L (0.7-2.1)
[2022-08-13 15:03] LABS: Alanine Aminotransferase 22 IU/L (<35); Albumin 4.6 g/dL (3.5-5.0); Albumin Globulin Ratio 1.2 (1.0-2.8); Alkaline Phosphatase 86 U/L (38-126); Aspartate Aminotransferase 26 IU/L (14-36); BUN Creatinine Ratio 16.4 (6-22); Blood Urea Nitrogen 10 mg/dL (7-17); Calcium 9.4 mg/dL (8.4-10.2); Carbon Dioxide 24 mmol/L (22-32); Chloride 98 mmol/L (98-107); Estimated Glomerular Filt Rate > 60 mL/min (>60); Globulin 3.8 g/dL (1.7-4.1); Glucose 113 mg/dL (70-100); HEMOLYSIS < 15 (0-50); Potassium 3.6 mmol/L (3.4-5.1); Sodium 137 mmol/L (137-145); Total Protein 8.4 g/dL (6.3-8.2)
--- NOTE | 2022-08-13 15:05 | DI.CT.S_ITS ---
PROCEDURE: CT ANGIO CHEST PE PROTOCOL INDICATIONS: Tachycardia, chest pain, shortness of breath TECHNIQUE: After the administration of intravenous contrast, 2 mm thick sections acquired from the pulmonary apices to the posterior costophrenic angles. 3-dimensional maximum intensity projection (MIP) coronal and sagittal reformats were then acquired through the thorax. For radiation dose reduction, the following was used: automated exposure control, adjustment of mA and/or kV according to patient size. COMPARISON: None. FINDINGS: Image quality: Excellent. Pulmonary arteries: Pulmonary arteries are normal in size, and demonstrate no intraluminal filling defects to suggest central pulmonary embolism. Lungs and pleura: Patchy pulmonary opacities are present in the bilateral lung bases. These are more confluent on the right than on the left. No pleural effusion or pneumothorax. Mediastinum: Heart size is normal, without pericardial effusion. No mediastinal or hilar adenopathy. Thoracic aorta is normal in caliber and enhancement. Esophagus is normal in caliber, without hiatal hernia. Bones and chest wall: No suspicious bony lesions. Ribs and thoracic spine appear intact throughout. Thyroid gland is unremarkable. No axillary or supraclavicular adenopathy. Abdomen: Visualized upper abdominal solid organs appear normal in the early arterial phase of enhancement. IMPRESSION: 1. Bilateral basilar pulmonary radiopacities suspicious for multifocal pneumonia. Short interval follow-up is recommended with resolution of these findings to ensure there is no underlying pulmonary neoplasm. Dictated by: Meka Lai M.D. on 08/13/2022 at 15:55 Approved by: Meka Lai M.D. on 08/13/2022 at 16:00
--- NOTE | 2022-08-13 15:05 | ED.GENADULT ---
HPI - General Adult General Chief complaint: Shortness of Breath/Dyspnea Stated complaint: sob/dizzy/weak Time Seen by Provider: 08/13/22 14:42 Source: patient Mode of arrival: Ambulatory History of Present Illness HPI narrative: 32-year-old female who for the past several weeks has had fatigue and shortness of breath on exertion and fevers and cough. Has been doing Tylenol and ibuprofen. Was seen in the walk-in clinic couple days ago was told that her chest x-ray is unremarkable. She is normally a runner with her heart rate is in the 50s. She states she is had decreased exercise tolerance secondary to her fatigue and shortness of breath and body aches. She denies abdominal pain. No chest pain. No change in bowel habits. No urinary symptoms. Related Data Home Medications Medication Instructions Recorded Confirmed prenat.vits,velasquez,[id number] 1 tab PO DAILY 08/28/20 08/09/22 Previous Rx's Medication Instructions Recorded clotrimazole 1 % topical cream 1 applic topical BID #30 grams 09/03/21 (Lotrimin AF (clotrimazole)) oxycodone 5 mg tablet 5 mg PO Q4H PRN pain #14 tabs 03/19/22 azithromycin 250 mg tablet See Rx Instructions PO .COMPLEX #6 08/13/22 tabs Allergies Allergy/AdvReac Type Severity Reaction Status Date / Time No Known Drug Allergies Allergy Verified 08/13/22 14:36 Review of Systems Review of Systems ROS Unobtainable: All systems reviewed & are unremarkable except as noted in HPI and below Patient History Medical History Abnormal Pap smear of cervix Anal fissure (~2016) Anxiety (12/17/15) Bronchitis Chronic fatigue (12/17/15) HPV (human papilloma virus) infection (~2013) Hypokalemia Learning disorder (12/17/15) Left serous otitis media Ovarian cyst (~09/2020) Palpitations (12/17/15) Rash (~2016) Sinusitis (spontaneous vaginal delivery) (~03/12/17) Surgical History Anesthesia History of dilation and curettage (~09/27/20) History of laparoscopy (~09/27/20) History of tonsillectomy (05/2005) Status post loop electrosurgical excision procedure (LEEP) of cervix (08/2014) [place] teeth extracted (~2006) Family History Grandfather Cancer Pancreatic cancer Grandfather Pacemaker Dementia Brother No problems noted. Father No problems noted. Grandmother Unknown whether patient has any health problems Arthritis Mother No problems noted. Grandmother Unknown whether patient has any health problems Sister No problems noted. Social History marital status: number of children: 1 household members: spouse and children lives independently: Yes pets and animals: Yes (X 1 dog) education level: college (Ass. 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 special nelly needs: No Smoking Status: Never smoker alcohol intake: former substance use type: does not use Smoking Status: Never smoker alcohol intake frequency: holidays/special occasions only Substance Use Type: does not use Exam Initial Vital Signs Initial Vital Signs: Vital Signs Temperature 98.5 F 08/13/22 14:30 Pulse Rate 128 H 08/13/22 14:30 Respiratory Rate 20 08/13/22 14:30 Blood Pressure 137/76 08/13/22 14:30 Pulse Oximetry 98 08/13/22 14:30 Oxygen Delivery Method 08/13/22 14:30 Const General: cooperative and comfortable HENMT Head: normal to inspection and normocephalic Chest Chest: normal inspection of the chest Resp Effort & Inspection: not labored and tachypneic Auscultation: clear to auscultation bilaterally Cardio Rate: tachycardic Rhythm: regular rhythm GI Inspection: normal to inspection Skin General: no rashes or lesions noted Neuro General: patient alert, patient awake, patient oriented x3 and moves all extremities Extrem General: normal to inspection and capillary refill normal Psych Appearance: grossly normal and well kempt Course Orders Ordered: ED Orders 08/13/22 14:30 Complete Blood Count AUTO DIFF Stat Comprehensive Metabolic Panel Stat Lactate (Lactic Acid) Stat NT-proBNP (BNP-Adult 18+) Stat 08/13/22 14:35 XR chest 2V Stat Measure peak expiratory flow ONCE RT Consult Eval and Treat Now 08/13/22 14:40 EKG-12 Lead Stat 08/13/22 14:52 Respiratory Panel (Film Array) Stat 08/13/22 15:05 CT angio chest PE protocol Stat Vital Signs Vital signs: Vital Signs - 8 hr 08/13/22 14:30 08/13/22 14:33 08/13/22 14:34 Temperature 98.5 F Pulse Rate 128 H 130 H Respiratory Rate 20 Blood Pressure 137/76 137/76 Pulse Oximetry 98 99 Oxygen Delivery Method Room Air Room Air 08/13/22 14:58 08/13/22 14:58 08/13/22 15:00 Temperature Pulse Rate 109 H Respiratory Rate 23 Blood Pressure 128/85 127/80 Pulse Oximetry 96 Oxygen Delivery Method Room Air 08/13/22 15:00 08/13/22 15:33 08/13/22 15:34 Temperature Pulse Rate 114 H 104 H Respiratory Rate 20 21 Blood Pressure Pulse Oximetry 96 98 98 Oxygen Delivery Method Room Air 08/13/22 15:34 08/13/22 16:00 08/13/22 16:00 Temperature Pulse Rate 104 H Respiratory Rate Blood Pressure 133/63 122/67 Pulse Oximetry 99 Oxygen Delivery Method 08/13/22 16:30 08/13/22 16:30 08/13/22 16:50 Temperature Pulse Rate 102 H Respiratory Rate 32 H 23 Blood Pressure 111/59 L Pulse Oximetry 99 Oxygen Delivery Method Medical Decision Making Medical Records Medical records reviewed: Yes I reviewed the patient's medical records. Lab Data Lab results reviewed: Yes I reviewed the patient's lab results. Result diagrams: 08/13/22 14:30 08/13/22 14:30 Labs: Lab Results 08/13/22 08/13/22 08/13/22 Range/Units 14:30 14:30 14:30 WBC 19.9 H (4.5-11.0) X10^3/uL RBC 4.65 (4.0-5.2) X10^6/uL Hgb 14.2 (12.0-16.0) g/dL Hct 41.4 (36-46) % MCV 89.0 (80-100) fL MCH 30.5 (26-34) PG MCHC 34.3 (30-36) % RDW 11.6 (11.6-14.8) % Plt Count 338 (150-400) X10^3/uL Neut % (Auto) 89.4 H (50-75) % Lymph % (Auto) 4.9 L (25-40) % [place] % (Auto) 5.4 (3-14) % Eos % (Auto) 0.1 L (2-4) % Baso % (Auto) 0.2 (0-2) % Neut # (Auto) 81308 H (4296-1662) /uL Lymph # (Auto) 1000 L (9266-6110) /uL [place] # (Auto) 1100 H (0-900) /uL Eos # (Auto) 0 (0-450) /uL Baso # (Auto) 0 (0-100) /uL Sodium 137 (137-145) mmol/L Potassium 3.6 (3.4-5.1) mmol/L Chloride 98 (98-107) mmol/L Carbon Dioxide 24 (22-32) mmol/L BUN 10 (7-17) mg/dL Creatinine 0.61 (0.52-1.04) mg/dL Estimated GFR > 60 (>60) mL/min BUN/Creatinine Ratio 16.4 (6-22) Glucose 113 H (70-100) mg/dL Lactate 1.2 (0.7-2.1) mmol/L Calcium 9.4 (8.4-10.2) mg/dL Total Bilirubin 1.0 (0.2-1.3) mg/dL AST 26 (14-36) IU/L ALT 22 (<35) IU/L Alkaline Phosphatase 86 (38-126) U/L NT-Pro-B Natriuret Pep 53 (<125) pg/mL Total Protein 8.4 H (6.3-8.2) g/dL Albumin 4.6 (3.5-5.0) g/dL Globulin 3.8 (1.7-4.1) g/dL Albumin/Globulin Ratio 1.2 (1.0-2.8) Chlamy pneumoniae PCR (Not Detect) Adenovirus (PCR) (Not Detect) B. pertussis DNA (PCR) (Not Detecte) B.parapertussis DNA PCR (Not Detecte) Coronavirus OC43 (PCR) (Not Detect) Coronavirus HKU1 (PCR) (Not Detect) Coronavirus 229E (PCR) (Not Detect) SARS-CoV-2 (PCR) (Not Detecte) Coronavirus NL63 (PCR) (Not Detect) Human Metapneumovir PCR (Not Detect) Influenza Type A (PCR) (Not Detect) Influenza Type B (PCR) (Not Detect) M. pneumoniae (PCR) (Not Detect) Parainfluenza 1 (PCR) (Not Detect) Parainfluenza 2 (PCR) (Not Detect) Parainfluenza 3 (PCR) (Not Detect) Parainfluenza 4 (PCR) (Not Detect) RSV (PCR) (Not Detect) Entero/Rhino (PCR) (Not Detect) 08/13/22 Range/Units 14:52 WBC (4.5-11.0) X10^3/uL RBC (4.0-5.2) X10^6/uL Hgb (12.0-16.0) g/dL Hct (36-46) % MCV (80-100) fL MCH (26-34) PG MCHC (30-36) % RDW (11.6-14.8) % Plt Count (150-400) X10^3/uL Neut % (Auto) (50-75) % Lymph % (Auto) (25-40) % [place] % (Auto) (3-14) % Eos % (Auto) (2-4) % Baso % (Auto) (0-2) % Neut # (Auto) (0933-7706) /uL Lymph # (Auto) (9508-7753) /uL [place] # (Auto) (0-900) /uL Eos # (Auto) (0-450) /uL Baso # (Auto) (0-100) /uL Sodium (137-145) mmol/L Potassium (3.4-5.1) mmol/L Chloride (98-107) mmol/L Carbon Dioxide (22-32) mmol/L BUN (7-17) mg/dL Creatinine (0.52-1.04) mg/dL Estimated GFR (>60) mL/min BUN/Creatinine Ratio (6-22) Glucose (70-100) mg/dL Lactate (0.7-2.1) mmol/L Calcium (8.4-10.2) mg/dL Total Bilirubin (0.2-1.3) mg/dL AST (14-36) IU/L ALT (<35) IU/L Alkaline Phosphatase (38-126) U/L NT-Pro-B Natriuret Pep (<125) pg/mL Total Protein (6.3-8.2) g/dL Albumin (3.5-5.0) g/dL Globulin (1.7-4.1) g/dL Albumin/Globulin Ratio (1.0-2.8) Chlamy pneumoniae PCR Not detected (Not Detect) Adenovirus (PCR) Not detected (Not Detect) B. pertussis DNA (PCR) Not detected (Not Detecte) B.parapertussis DNA PCR Not detected (Not Detecte) Coronavirus OC43 (PCR) Not detected (Not Detect) Coronavirus HKU1 (PCR) Not detected (Not Detect) Coronavirus 229E (PCR) Not detected (Not Detect) SARS-CoV-2 (PCR) Not detected (Not Detecte) Coronavirus NL63 (PCR) Not detected (Not Detect) Human Metapneumovir PCR Not detected (Not Detect) Influenza Type A (PCR) Not detected (Not Detect) Influenza Type B (PCR) Not detected (Not Detect) M. pneumoniae (PCR) Not detected (Not Detect) Parainfluenza 1 (PCR) Not detected (Not Detect) Parainfluenza 2 (PCR) Not detected (Not Detect) Parainfluenza 3 (PCR) Not detected (Not Detect) Parainfluenza 4 (PCR) Not detected (Not Detect) RSV (PCR) Not detected (Not Detect) Entero/Rhino (PCR) Not detected (Not Detect) Imaging Data Chest x-ray: Radiologist's Impression: [address] [address] XRay Report Signed Patient: Rajani Francis MR#: [id number] : 1990 Acct:[id number] Age/Sex: 32 / F Date of Service: 08/13/22 Loc: ED Accession Number: [id number] ?? Procedure: XR chest 2V Ordering Provider: Shukri Aguillon D.O. PROCEDURE:? XR CHEST 2V ? INDICATIONS:? shortness of breath ? TECHNIQUE:? 2 views of the chest were acquired.? ? COMPARISON:? [facility], SEAN, XR CHEST 2V, 08/09/2022, 13:53.? [facility], CR, XR CHEST 2V, 11/06/2018, 9:49. ? FINDINGS:? ? Surgical changes and devices:? None.? ? Lungs and pleura:? Patchy right basilar opacity, likely within the right lower lobe.? No pleural effusion or pneumothorax. ? Mediastinum:? Mediastinal contours are normal.? Heart size is normal.? ? Bones and chest wall:? No suspicious bony abnormalities.? Soft tissues appear unremarkable.? ? IMPRESSION:? Right basilar opacity is present that could represent pneumonia or aspiration in the appropriate clinical setting. ? ? Dictated by: Cale Diaz M.D. on 08/13/2022 at 15:26 ? ? Approved by: Cale Diaz M.D. on 08/13/2022 at 15:29 CT scan - chest: Radiologist's Impression: Close Chest CTA (Signed) Meka Lai - 08/13/22 Chest X-Ray (Signed) Cale Diaz - 08/13/22 Chest X-Ray (Signed) Jamie Bhatia - 08/09/22 Ultrasound (Signed) Chaka Workman - 03/12/21 Abdomen/Pelvis CT (Signed) Jose J Patterson - 09/27/20 Chest/Abdomen X-ray (Signed) Joby Masters - 04/20/20 Chest X-Ray (Signed) Anderson Egan - 11/06/18 Pelvis X-Ray (Signed) Bashir Kirkland - 09/06/18 Lumbar Spine X-Ray (Signed) Bashir Kirkland - 09/06/18 Launch?[place] [address] CT Scan Report Signed Patient: Rajani Francis MR#: [id number] : 1990 Acct:[id number] Age/Sex: 32 / F Date of Service: 08/13/22 Loc: ED Accession Number: [id number] ?? Procedure: CT angio chest PE protocol Ordering Provider: Shukri Aguillon D.O. PROCEDURE:? CT ANGIO CHEST PE PROTOCOL ? INDICATIONS:? Tachycardia, chest pain, shortness of breath ? TECHNIQUE:? After the administration of intravenous contrast, 2 mm thick sections acquired from the pulmonary apices to the posterior costophrenic angles.? 3-dimensional maximum intensity projection (MIP) coronal and sagittal reformats were then acquired through the thorax.? For radiation dose reduction, the following was used:? automated exposure control, adjustment of mA and/or kV according to patient size.? ? COMPARISON:? None. ? FINDINGS:? Image quality:? Excellent.? ? Pulmonary arteries:? Pulmonary arteries are normal in size, and demonstrate no intraluminal filling defects to suggest central pulmonary embolism.? ? Lungs and pleura:? Patchy pulmonary opacities are present in the bilateral lung bases.? These are more confluent on the right than on the left.? No pleural effusion or pneumothorax. ? Mediastinum:? Heart size is normal, without pericardial effusion.? No mediastinal or hilar adenopathy.? Thoracic aorta is normal in caliber and enhancement.? Esophagus is normal in caliber, without hiatal hernia.? ? Bones and chest wall:? No suspicious bony lesions.? Ribs and thoracic spine appear intact throughout.? Thyroid gland is unremarkable.? No axillary or supraclavicular adenopathy.? ? Abdomen:? Visualized upper abdominal solid organs appear normal in the early arterial phase of enhancement.? ? IMPRESSION:? ? 1. Bilateral basilar pulmonary radiopacities suspicious for multifocal pneumonia.? Short interval follow-up is recommended with resolution of these findings to ensure there is no underlying pulmonary neoplasm. ? ? Dictated by: Meka Lai M.D. on 08/13/2022 at 15:55 ? ? Approved by: Meka Lai M.D. on 08/13/2022 at 16:00? ECG Data Attestation: I personally reviewed and interpreted this ECG as follows: Interpretation: Sinus tachycardia Ventricular rate 121 Normal axis Normal QRS Normal QTC Nonspecific ST T wave changes MDM Narrative Medical decision making narrative: Patient is tachycardic and tachypneic but not hypoxic. CT scan shows multifocal pneumonia. Chest x-ray today shows pneumonia. This is not present on the chest x-ray a couple days ago. Has a leukocytosis. Given all of her presenting symptoms I do feel that we should treat her with antibiotics. Her COVID is negative. The rest of her respiratory panel is negative. No indication for admission to the hospital however patient was given strict return precautions. She expressed understanding and agreement. Discharge Plan Departure Patient Disposition: Home Clinical Impression: Pneumonia Instructions: DI for Pneumonia -- Adult Activity Restrictions/Additional Instructions: Recommend that you take the antibiotics as directed. You can take Tylenol/ibuprofen for any fevers or body aches. Be sure you are staying hydrated. Return to the emergency department for any new or worsening symptoms. Prescriptions: New azithromycin 250 mg tablet See Rx Instructions .ROUTE .COMPLEX Qty: 6 0RF Rx Instructions: For 250 mg dose pack: take 500 mg today (day 1), then 250 mg for 4 days (days 2-5) No Action prenat.vits,velasquez,[id number] Tablet 1 tab PO DAILY clotrimazole [Lotrimin AF (clotrimazole)] 1 % cream 1 applic topical BID Qty: 30 1RF Rx Instructions: Apply to affected area twice a day for at least 3 wks or until rash is gone oxycodone 5 mg tablet 5 mg PO Q4H PRN (Reason: pain) Qty: 14 0RF Referrals: Du Maier MD [Primary Care Provider] - Visit Report Forms: Patient Portal/API
[2022-08-13 15:12] LABS: NT-proBNP (BNP-Adult 18+) 53 pg/mL (<125)
[2022-08-13 16:30] LABS: Adenovirus Not Detected (Not Detect); B. parapertussis Not Detected (Not Detecte); Bordetella pertussis Not Detected (Not Detecte); Chlamydophila pneumoniae Not Detected (Not Detect); Coronavirus 229E Not Detected (Not Detect); Coronavirus HKU1 Not Detected (Not Detect); Coronavirus NL 63 Not Detected (Not Detect); Coronavirus OC43 Not Detected (Not Detect); Human Metapneumovirus Not Detected (Not Detect); Human Rhinovirus/Enterovirus Not Detected (Not Detect); Influenza A Not Detected (Not Detect); Influenza B Not Detected (Not Detect); Mycoplasma pneumoniae Not Detected (Not Detect); Parainfluenza Virus 1 Not Detected (Not Detect); Parainfluenza Virus 2 Not Detected (Not Detect); Parainfluenza Virus 3 Not Detected (Not Detect); Parainfluenza Virus 4 Not Detected (Not Detect); Respiratory Syncytial Virus Not Detected (Not Detect); SARS- CoV-2 Not Detected (Not Detecte)
== END 2022-08-13 16:50 | disposition home or self-care (01) ==
PROVIDERS: Emergency Provider Emergency Medicine; PCP Family Medicine
DX: J18.9 Pneumonia, unspecified organism (principal); R00.0 Tachycardia, unspecified; R07.9 Chest pain, unspecified; Z20.822 Contact with and (suspected) exposure to COVID-19
CPT/HCPCS: 36415; 71046; 71275; 80053; 83605; 83880; 85025; 87633; 93005; 93010; 99284; Q9967

== ENCOUNTER → 2022-08-24 15:55 | Outpatient (CLI) | payer OTHER, SELFPAY ==
--- NOTE | 2022-08-24 15:56 | DI.RAD.S_ITS ---
PROCEDURE: XR CHEST 2V INDICATIONS: pneumonia TECHNIQUE: 2 views of the chest were acquired. COMPARISON: [facility], CR, XR CHEST 2V, 08/13/2022, 14:47. FINDINGS: Surgical changes and devices: None. Lungs and pleura: Pulmonary radiopacities are redemonstrated at the right lung base and have a similar appearance to the study dated August 13, 2022. The left lung is clear. No pleural effusion or pneumothorax. Mediastinum: Mediastinal contours are normal. Heart size is normal. Bones and chest wall: No suspicious bony abnormalities. Soft tissues appear unremarkable. IMPRESSION: Persistent right basilar pulmonary radiopacities. Follow-up to resolution is recommended to exclude underlying neoplasm or centrally obstructing mass. Dictated by: Meka Lai M.D. on 08/24/2022 at 16:44 Approved by: Meka Lai M.D. on 08/24/2022 at 16:46
== END ==
PROVIDERS: PCP Family Medicine; Referring Provider Family Medicine; Visit Provider Family Medicine
DX: J18.9 Pneumonia, unspecified organism (principal)
CPT/HCPCS: 71046

== ENCOUNTER → 2022-10-02 17:40 | Outpatient (CLI) | payer OTHER, SELFPAY ==
--- NOTE | 2022-10-02 17:42 | DI.RAD.S_ITS ---
PROCEDURE: XR CHEST 2V INDICATIONS: abnormal chest xray pneumonia TECHNIQUE: 2 views of the chest were acquired. COMPARISON: [facility], CT, CT ANGIO CHEST PE PROTOCOL, 08/13/2022, 15:30. [facility], CR, XR CHEST 2V, 08/24/2022, 16:03. FINDINGS: Surgical changes and devices: None. Lungs and pleura: Near complete resolution of previously seen right lower lobe opacities. No pleural effusions or pneumothorax. Mediastinum: Mediastinal contours are normal. Heart size is normal. Bones and chest wall: No suspicious bony abnormalities. Soft tissues appear unremarkable. IMPRESSION: Previously seen right lower lobe opacities have nearly completely resolved. Approved by: Cale Arnold M.D. on 10/02/2022 at 21:51
== END ==
PROVIDERS: PCP Family Medicine; Referring Provider Family Medicine; Visit Provider Family Medicine
DX: J18.9 Pneumonia, unspecified organism (principal); R93.89 Abnormal findings on diagnostic imaging of other specified body structures
CPT/HCPCS: 71046

== ENCOUNTER → 2024-05-27 11:13 | Outpatient (CLI) | payer OTHER, SELFPAY | PROVIDERS: PCP Family Medicine; Referring Provider Physician Assistant Surgical; Visit Provider Physician Assistant Surgical | DX: R30.0 Dysuria (principal) | CPT/HCPCS: 87077; 87086; 87186 ==

== ENCOUNTER → 2024-11-25 08:38 | Outpatient (CLI) | payer OTHER, SELFPAY ==
[2024-11-25 09:58] LABS: Add Manual Diff / Slide Review NO; Basophils Absolute Auto 0 /uL (0-100); Basophils Percent Auto 0.4 % (0-2); Eosinophils Absolute Auto 100 /uL (0-450); Eosinophils Percent Auto 2.1 % (2-4); Hematocrit 42.4 % (36-46); Hemoglobin 14.3 g/dL (12.0-16.0); Lymphocytes Absolute Auto 1900 /uL (1100-4500); Lymphocytes Percent Auto 38.5 % (25-40); Mean Corpuscular HGB Conc 33.6 % (30-36); Mean Corpuscular Hemoglobin 30.7 PG (26-34); Mean Corpuscular Volume 91.1 fL (80-100); Monocytes Absolute Auto 500 /uL (0-900); Monocytes Percent Auto 10.2 % (3-14); Neutrophils Absolute Auto 2400 /uL (1500-7000); Neutrophils Percent Auto 48.8 % (50-75); Platelet Count 258 X10^3/uL (150-400); Red Blood Cell Count 4.66 X10^6/uL (4.0-5.2); Red Cell Distribution Width 12.4 % (11.6-14.8); White Blood Cell Count 4.9 X10^3/uL (4.5-11.0)
[2024-11-25 10:34] LABS: HEMOLYSIS < 15 (0-50); Iron 81 ug/dL (37-170)
[2024-11-25 10:40] LABS: Cholesterol 231 mg/dL (140-199); Glucose 88 mg/dL (70-100); HDL Cholesterol 80 mg/dL (40-60); LDL Cholesterol Calculated 140 mg/dL (<100); Triglycerides 55 mg/dL (35-150)
[2024-11-25 10:45] LABS: Percent Iron Saturation 30 % (15-50); Total Iron Binding Capacity 267 ug/dL (265-497); Transferrin 246 mg/dL (206-381)
[2024-11-25 11:14] LABS: Ferritin 41 ng/mL (6-137)
== END ==
PROVIDERS: PCP Family Medicine; Referring Provider Physician Assistant; Visit Provider Physician Assistant
DX: R79.89 Other specified abnormal findings of blood chemistry (principal); R73.09 Other abnormal glucose; Z13.220 Encounter for screening for lipoid disorders; Z13.6 Encounter for screening for cardiovascular disorders; R79.0 Abnormal level of blood mineral
CPT/HCPCS: 36415; 80061; 82728; 82947; 83540; 83550; 85025